=== PATIENT | female | born 1995 | race African-American/Black ===

== ENCOUNTER 2024-08-02 19:47 | Emergency (ER) | payer OTHER, SELFPAY ==
[2024-08-02 19:49] VITALS: BP 107/62; PULSE 73; RESP 18; TEMP 36.6; O2SAT 100
--- NOTE | 2024-08-03 03:02 | ED.GENADULT ---
HPI - General Adult General Chief complaint: Unspecified Stated complaint: body aches, fingers aching Time Seen by Provider: 08/03/24 03:03 History of Present Illness HPI narrative: 29-year-old otherwise healthy female presents to the emergency department with vague body aches, myalgias, subjective hot and cold sensations and intolerance to the cold. Denies any weight gain or weight loss, hair thinning, nail issues. No chest pain, shortness a breath, nausea, vomiting, headache, vision changes. She states her symptoms are much worse in the morning and subsided throughout the day. Hot showers make this better. Has tried Tylenol without any relief of her symptoms. Went to urgent care and was dismissed after a urine test but she has not received any kind of blood tests or further workup. Presently does not have a primary care provider. Related Data Allergies Allergy/AdvReac Type Severity Reaction Status Date / Time No Known Allergies Allergy Verified 08/03/24 03:51 Review of Systems Review of Systems: As reviewed above in HPI Exam Narrative: GENERAL: [Well-appearing, well-nourished, and in no acute distress.] HEAD: [Normocephalic, atraumatic.] EYES: [PERRLA and EOMI.] ENT: Nares clear, no rhinorrhea or epistaxis. Mucous membranes moist. NECK: Supple. CHEST: [Clear to auscultation. No respiratory distress.] HEART: [Regular rate and rhythm]. No murmur heard. [Normal peripheral pulses.] ABDOMEN: [Soft, nondistended], [nontender], [No rigidity or guarding] EXTREMITIES: Normal range of motion. [No edema.] SKIN: Warm, dry, no rash. NEURO: [No focal deficits]. Alert and oriented [x3.] PSYCH: [Normal mood and affect.] Course Vital Signs Vital signs: Vital Signs Temperature 36.6 C 08/02/24 19:49 Pulse Rate 73 08/02/24 19:49 Respiratory Rate 18 08/02/24 19:49 Blood Pressure 107/62 08/02/24 19:49 Pulse Oximetry 100 08/02/24 19:49 Oxygen Delivery Room Air 08/02/24 19:49 Temperature 36.6 C 08/02/24 19:49 Pulse Rate 73 08/02/24 19:49 Respiratory Rate 16 08/03/24 04:23 Blood Pressure 107/62 08/02/24 19:49 Pulse Oximetry 98 08/03/24 04:23 Oxygen Delivery Room Air 08/02/24 19:49 Medical Decision Making MDM Narrative Medical decision making narrative: 29-year-old otherwise healthy female presenting to the emergency department for vague complaints including diffuse myalgias especially in the major joints, cold intolerance, subjective myalgias. She states her symptoms are much worse in the morning and he is up throughout the day. Not responsive to Tylenol. Has not had a workup for this and does not have a primary care provider at this time. She has normal reassuring vital signs and a reassuring benign examination with good cardiovascular pulmonary assessment as well as no significant findings on her joint and musculoskeletal assessment. Differential diagnosis is broad at this time includes electrolyte disturbances, thyroid issues, arthritis, viral illness likely COVID. Workup was ordered including CBC, BMP, CRP, ESR, TSH, COVID fluid RSV swabs. Bedside test was obtained. Naprosyn was ordered for her symptoms. Workup revealed no leukocytosis or anemia. Chemistry panel within normal limits, creatinine at 0.6 and normal. Glucose normal at 99. Negative CRP, normal TSH, normal CPK. test negative. Viral swabs negative. At this time patient is stable for discharge home with regular primary care provider follow-up. Patient is not have a PCP at this time and 1 was arranged for her with discharge instructions to follow. All her questions were answered and return precautions were given. Vital Signs Vital Signs: Vital Signs Temperature 36.6 C 08/02/24 19:49 Pulse Rate 73 08/02/24 19:49 Respiratory Rate 18 08/02/24 19:49 Blood Pressure 107/62 08/02/24 19:49 Pulse Oximetry 100 08/02/24 19:49 Oxygen Delivery Room Air 08/02/24 19:49
[2024-08-03] MEDS: NAPROXEN 500 MG TABLET PO (03:52)
[2024-08-03 03:53] LABS: BEDSIDEPREGUCG Negative (Negative)
[2024-08-03 03:56] LABS: Basophils Percent Auto 1.4 % (0.2-1.2); Eosinophils Absolute Auto 0.1 K/mm3 (0-0.3); Eosinophils Percent Auto 4.2 % (0-4.4); Hematocrit 34.9 % (37.0-47.0); Hemoglobin 11.5 g/dL (12.0-15.0); Lymphocytes Absolute Auto 1.45 K/mm3 (0.9-3.2); Lymphocytes Percent Auto 51.1 % (18.3-44.2); Mean Corpuscular Hemoglobin 27.6 pg (26-34); Mean Corpuscular Volume 83.9 fl (80-100); Mean Platelet Volume 9.4 fl (7.4-10.4); Monocytes Absolute Auto 0.3 K/mm3 (0.1-0.6); Monocytes Percent Auto 9.9 % (2.6-8.5); Neutrophils Percent Auto 33.4 % (45.5-73.1); Platelet Count Result 220 k/mm3 (150-375); Red Blood Count 4.16 M/mm3 (4.2-5.4); Red Cell Distribution Width 12.7 % (11.5-14.5); White Blood Count 2.8 K/mm3 (4.5-10.0)
[2024-08-03 04:09] LABS: Anion Gap 10 mmol/L (4-12); Blood Urea Nitrogen 11 mg/dL (7-17); CRP < 0.5 mg/dL (<1.0); Calcium 9.3 mg/dL (8.4-10.2); Carbon Dioxide 29 mmol/L (22-30); Chloride 101 mmol/L (98-107); Creatine Kinase 58 U/L (30-135); Estimated CRCL calculation 100 ml/min; Estimated Glomerular Filt Rate > 60; Glucose 99 mg/dL (65-110); Potassium 3.4 mmol/L (3.4-5.0); Sodium 140 mmol/L (137-145)
[2024-08-03 04:23] VITALS: RESP 16; O2SAT 98
[2024-08-03 04:32] LABS: Erythrocyte Sedimentation Rate 15 mm/hr (0-20); Influenza A QL RT-PCR Negative (Negative); Influenza B QL RT-PCR Negative (Negative); SARS-CoV-2 RNA PCR Negative (Negative)
[2024-08-03 05:38] VITALS: BP 112/81; PULSE 69; RESP 17; TEMP 36.5; O2SAT 99
== END 2024-08-03 05:39 | disposition home or self-care (01) ==
PROVIDERS: Emergency Provider Student in an Organized Health Care Education/Training Program
DX: M79.10 Myalgia, unspecified site (principal); Z20.822 Contact with and (suspected) exposure to COVID-19
CPT/HCPCS: 36415; 80048; 81025; 82550; 84443; 85025; 85652; 86140; 87636; 99283; A9270

== ENCOUNTER 2025-03-09 08:16 | Outpatient (CLI) | payer OTHER, SELFPAY ==
--- NOTE | ~2025-03-09 | US_ITS ---
EXAMINATION: US thyroid DATE: 03/09/2025 08:50 INDICATION: Neck fullness TECHNIQUE: Multiple ultrasound images of the thyroid were obtained. COMPARISON: None. FINDINGS: The right thyroid lobe measures 4.8 x 1.3 x 1.5 cm. The left thyroid lobe measures 4.5 x 1.4 x 1.5 cm. The isthmus measures 0.3cm in anterior to posterior dimension. There is normal homogeneous echotexture throughout the thyroid gland. No discrete nodules identified. Normal vascular flow is present. IMPRESSION: Unremarkable sonographic evaluation of the thyroid gland, as detailed above. Reviewed, dictated and finalized at location A.
--- OUTSIDE RECORDS SUMMARY | 2025-03-09 08:25 | XMS_ITS | Encounter Summary ---
Author Organization [facility] Address [address] [place] [address] Care Team Providers Care Locomotive Operator Name Role Phone Gem Bhatia NP Primary Care Provider [phone] Kim John NP Unavailable [phone] Reason for Referral * Consultation (Routine) - Closed Specialty Diagnoses / Procedures Referred By Contac t Referred To Contact Cardiology Diagnoses Hypotension, unspecified hypotension type Fatigue, unspecified type Light-headedness Gem Bhatia NP [address] [facility] [address] [place] [address] Phone: tel: fax: Nikki Coleman NP [address] [place] [address] [address] [place] [address] Phone: tel: fax: Referral ID Status Reason Start Date Expiration Date V isits Requested Visits Authorized [id number] Closed Specialty Services Required 01/27/2025 02/26/2026 1 1 Question Answer Please select the performing region: HOSP [facility] ([facility]) [[id number]] Please select the performing department: [facility] [address] [[id number]] To provider: NIKKI COLEMAN [[id number]] # of visits: 1 [employer] Encounter Details Date Type Department Care Team (Late st Contact Info) Description 01/26/2025 Results Follow-Up [facility] [place] [address] [place] [address] [phone] Gem Bhatia NP [address] [facility] [address] [place], [place] [id number] Hypotension, unspecified hypotension type (Primary Dx); Fatigue, unspecified type; Light-headedness Social History Tobacco Use Types Packs/Day Years Used Date Smoking Tobacco: Never Cigarettes Smokeless Tobacco: Never PHQ-2 Answer Date Recorded PHQ-2 Total Score (If total score is 3 or more points, staff should administer the PHQ-9) 0 01/10/2025 Comments Unknown Sex and Gender Information Value Date Recorded Sex Assigned at Not on file Legal Sex Female 8:02 PM [employer] Gender Identity Female 08/07/2024 12:23 PM CDT Sexual Orientation Straight 08/07/2024 12 :23 PM CDT documented as of this encounter Plan of Treatment Scheduled Referrals Name Type Priority Associated Diagnoses Orde r Schedule Ambulatory referral to Cardiology Outpatient Referral Routine Hypotension, unspecified hypotension type Fatigue, unspecified type Light-headedness Expected: 01/28/2025 (Approximate), Expires: 01/27/2026 documented as of this encounter Visit Diagnoses Diagnosis Hypotension, unspecified hypotension type- Primary Fatigue, unspecified type Light-headedness Dizziness and giddiness documented in this encounter Care Teams Locomotive Operator Relationship Specialty Start Date End Date Gem Bhatia NP [address] [place] [address] [address] [place], [place] [id number] PCP - General Family Medicine 12/05/24 Kim John NP [address] [place] [address] [address] Nurse Practitioner Obstetrics and Gynecology 02/22/25 documented as of this encounter
--- OUTSIDE RECORDS SUMMARY | 2025-03-09 08:25 | XMS_ITS | Referral Summary ---
Author Organization [facility] Address [address] [place] [address] Care Team Providers Care Director Of Food And Beverage Services Name Role Phone Nathaniel Torres NP Primary Care Provider [phone] Kim John NP Unavailable [phone] Encounters Date Type Department Care Team Description 03/03/2025 11:45 AM CDT Office Visit [facility] at [address] [place] [address] Nikki Coleman NP Hypotension, unspecified hypotension type; Fatigue, unspecified type; Light-headedness 02/22/2025 10:00 AM CDT Office Visit [facility] Primary Care at [address] [address] Nathaniel Torres NP Annual physical exam (Primary Dx); Hypotension, unspecified hypotension type; Neck fullness; Voice hoarseness 01/26/2025 Results Follow-Up [facility] Primary Care at [address] [address] Nathaniel Torres NP Hypotension, unspecified hypotension type (Primary Dx); Fatigue, unspecified type; Light-headedness 01/26/2025 1:30 PM GRAIN MIXER Ancillary Procedure [facility] Cardiology at [address] [place] [address] Hypotension, unspecified hypotension type 01/12/2025 2:00 PM GRAIN MIXER Lab [address] [place] [address] Anemia, unspecified type (Primary Dx); Other decreased white blood cell (WBC) count 01/12/2025 2:30 PM GRAIN MIXER Office Visit [address] [place] [address] Jason Franz MD Anemia, unspecified type (Primary Dx); Other decreased white blood cell (WBC) count; Lyme disease 01/11/[address] [place] [address] Arminda Brown, CLT 01/10/2025 1:00 PM GRAIN MIXER Office Visit [facility] Primary Care at [address] [address] Nathaniel Torres NP Hypotension, unspecified hypotension type (Primary Dx); Complaints of total body pain; Fatigue, unspecified type 12/29/2024 2:00 PM GRAIN MIXER Lab [address] [place] [address] Anemia, unspecified type; Other decreased white blood cell (WBC) count 12/29/2024 1:30 PM GRAIN MIXER Office Visit [address] [place] [address] Jason Franz MD Anemia, unspecified type; Other decreased white blood cell (WBC) count; Complaints of total body pain; Fatigue, unspecified type; Abnormally prolonged clotting time 12/28/[address] [place] [address] Arminda Brown, CLT 12/09/2024 Telephone [facility] Oncology [address] [place] [address] [address] [place] [address] Darlene Mccormick, CLT from Last 3 Months Allergies No known active allergies Medications wlrgrfuh-cuat-os n-folic acid 18-0.4 mg tablet Take by mouth Active [id number] acid 29 mg iron- 1 mg tablet,chewable Take by mouth Active biotin 5 mg capsule 1 capsule (1 tablet total) Active doxycycline (VIBRAMYCIN) 100 mg capsuleIndicatio ns:Lyme disease Take 1 tablet/capsule (100 mg total) by mouth 2 (two) times a day 60 tablet/capsu le 5 Active Additional Information Patient not taking.Reported on 03/03/2025 famotidine (PEPCID) 40 mg tablet Take 1 tablet (40 mg total) by mouth daily 30 tablet 1 5 Active midodrine (PROAMATINE) 2.5 mg tabletIndication s:Symptomatic Orthostatic Hypotension Take 1 tablet (2.5 mg total) by mouth 3 (three) times a day 90 tablet 5 04/02/20 25 Active Active Problems Problem Noted Date Diagnosed Date Sickle cell trait 01/12/2025 Hypotension 01/10/2025 Assessment & Plan (02/22/2025 10:36 AM CDT): Continuing despite hydration. Discussed compression socks. With the arthralgias and fatigue need to consider autoimmune origin, workup negative thus far though. Possibly POTS? Pt has upcoming Cardiology appt, will get their take on pt's hypotension/sx. Bacterial vaginosis 12/05/2024 Chlamydial infection 12/05/2024 Vaginal discharge 12/05/2024 Immunizations Immunization Administration Dates Next Due DTP 05/04/1997,04/28/1994,1993 ,1993 HPV, Quadrivalent 11/21/2009 HPV9 03/15/2019,09/29/2018 Hep A, Pediatric 06/15/2003 Hep B, Adolescent or Pediatric 04/28/1994,1992,1993 HiB 08/29/1994,04/28/1994,1993 ,1993 MMR 08/29/2002,08/29/1994 Meningococcal MCV4P (Menactra) 11/21/2009 OPV 05/04/1997,04/28/1994,1993 ,1993 Tdap 04/26/2012 Varicella 11/21/2009,06/15/2003 Social History Tobacco Use Types Packs/Day Years Used Date Smoking Tobacco: Never Cigarettes Smokeless Tobacco: Never Tobacco Cessation:Counseling Given: Not Answered PHQ-2 Answer Date Recorded PHQ-2 Total Score (If total score is 3 or more points, staff should administer the PHQ-9) 0 02/22/2025 Comments Unknown Sex and Gender Information Value Date Recorded Sex Assigned at Not on file Legal Sex Female 8:02 PM GRAIN MIXER Gender Identity Female 08/07/2024 12:23 PM CDT Sexual Orientation Straight 08/07/2024 12 :23 PM CDT Last Filed Vital Signs Vital Sign Reading Time Taken Comments Blood Pressure 107/71 03/03/2025 12:23 PM CDT Ad ult Cuff Pulse 71 03/03/2025 12:23 PM CDT Temperature 36.9 C (98.4 F) 02/22/2025 9:51 AM CDT Respiratory Rate 16 03/03/2025 12:23 PM CDT Oxygen Saturation 98% 03/03/2025 12:23 PM CDT Inhaled Oxygen Concentration - - Weight 56.2 kg (124 lb) 03/03/2025 12:23 PM CDT Height 165.1 cm (5' 5 ) 03/03/2025 12:23 PM CDT Body Mass Index 20.63 03/03/2025 12:23 PM CDT Plan of Treatment Not on file Procedures Procedure Name Priority Date/Time Associated Diagnosis Comments TRANSTHORACIC ECHO (TTE) COMPLETE W DOPPLER/CF WO CONTRAST Routine 01/26/2025 2:41 PM GRAIN MIXER Hypotension, unspecified hypotension type DIFFERENTIAL AUTO Routine 01/12/2025 1:5 0 PM GRAIN MIXER Anemia, unspecified type CBC WITH AUTO DIFFERENTIAL Routine 01/12/2025 1:50 PM GRAIN MIXER Anemia, unspecified type ECG 12-LEAD Routine 01/10/2025 3:01 PM GRAIN MIXER Hypotension, unspecified hypotension type HEMOGLOBIN CONFIRMATION, ACID ELECTROPHORESIS Routine 12/29/2024 2:00 PM GRAIN MIXER Anemia, unspecified type Other decreased white blood cell (WBC) count SLIDE REVIEW - PATHOLOGIST Routine 12/29/2024 2:00 PM GRAIN MIXER Anemia, unspecified type Other decreased white blood cell (WBC) count DIFFERENTIAL AUTO Routine 12/29/2024 2:0 0 PM GRAIN MIXER Anemia, unspecified type Other decreased white blood cell (WBC) count RETICULOCYTES Routine 12/29/2024 2:00 PM GRAIN MIXER Anemia, unspecified type Other decreased white blood cell (WBC) count HAPTOGLOBIN Routine 12/29/2024 2:00 PM GRAIN MIXER Anemia, unspecified type Other decreased white blood cell (WBC) count LACTATE DEHYDROGENASE Routine 12/29/2024 2:00 PM GRAIN MIXER Anemia, unspecified type Other decreased white blood cell (WBC) count T4, FREE Routine 12/29/2024 2:00 PM GRAIN MIXER Anemia, unspecified type Other decreased white blood cell (WBC) count TSH Routine 12/29/2024 2:00 PM GRAIN MIXER Anemia, unspecified type Other decreased white blood cell (WBC) count FOLATE Routine 12/29/2024 2:00 PM GRAIN MIXER Anemia, unspecified type Other decreased white blood cell (WBC) count CBC WITH AUTO DIFFERENTIAL Routine 12/29/2024 2:00 PM GRAIN MIXER Anemia, unspecified type Other decreased white blood cell (WBC) count COPPER, SERUM Routine 12/29/2024 2:00 PM GRAIN MIXER Anemia, unspecified type Other decreased white blood cell (WBC) count HEMOGLOBIN ANALYSIS BY ELECTROPHORESIS Routine 12/29/2024 2:00 PM GRAIN MIXER Anemia, unspecified type Other decreased white blood cell (WBC) count SURGICAL PATHOLOGY Routine 12/29/2024 8: 30 AM GRAIN MIXER from Last 3 Months Results * TRANSTHORACIC ECHO (TTE) COMPLETE W DOPPLER/CF WO CONTRAST (01/26/2025 2:41 PM GRAIN MIXER) LV EF 60 % CONS SCIMAGE Anatomical Region Laterality Modality Ultrasound 01/26/2025 1:26 PM GRAIN MIXER Narrative 01/26/2025 4:[address] [facility] Cardiology [address], [address], [place] [address] P:[phone] P:[phone] Echocardiographic Report Patient Name: CORAL VANESSA D : 1995 Study Date: 01/26/2025 1:26:26 PM Gender: F Tech: Location: [facility] Ref Provider: NATHANIEL TORRES Height(Cm): 170 BSA: 1.64 Weight(Kg): 56.7 Heart Rate: 71 BP: 108 / 60 Quality: Good Order Provider: NATHANIEL TORRES PROCEDURES: Echocardiographic Report: Transthoracic echocardiogram with complete 2D, M-Mode, and color Doppler examination. With Strain Analysis. INDICATIONS: I95.9 Hypotension, unspecified. MEASUREMENTS: 2D/MM Value Range Doppler Value Range EF Mod BP 66 % [ 54 - 74 ] ANGELY Vmax 2.52 cm2 [ 2.00 - 4.00 ] EF Teich MM 60 % [ 54 - 74 ] AV Mean PG 4 mmHg Estimated EF 60 % AV Peak Aldair 1.33 m/s [ 1.00 - 1.70 ] LVIDd 2D 4.41 cm [ 3.80 - 5.20 ] AV Peak PG 7 mmHg LVIDd MM 4.87 cm [ 3.80 - 5.20 ] AV VTI 27.11 cm LVIDs 2D 2.91 cm [ 2.20 - 3.50 ] LVOT Diam 1.96 cm [ 1.70 - 2.10 ] LVIDs MM 3.33 cm [ 2.20 - 3.50 ] LVOT Peak Aldair 1.07 m/s [ 0.70 - 1.10 ] LVPWd 2D 0.70 cm [ 0.60 - 0.90 ] LVOT VTI 20.86 cm LVPWd MM 0.68 cm [ 0.60 - 0.90 ] MV E Peak Aldair 0.91 m/s [ 0.60 - 1.30 ] IVSd 2D 0.77 cm [ 0.60 - 0.90 ] MV A Peak Aldair 0.48 m/s [ 1.00 - 1.20 ] IVSd MM 0.80 cm [ 0.60 - 0.90 ] MV Decel Time 209 msec [ 104 - 258 ] LA Dimension MM 2.53 cm [ 2.70 - 3.80 ] PV Peak Aldair 0.89 m/s [ 0.40 - 0.80 ] AoR Diam MM 3.19 cm [ 2.70 - 3.70 ] TR Peak Aldair 2.29 m/s [ 1.00 - 2.80 ] LA Volume Index 27 cc/m2 [ 16 - 34 ] TR Peak PG 21 mmHg RVSP 29.00 mmHg [ 10.00 - 36.00 ] Lateral E` 0.21 m/s [ 0.10 - 0.15 ] E/E` 4 2D/MM Value Range Doppler Value Range - FINDINGS: Interpretation Site: Exam was interpreted at [facility]. Left Ventricle: Normal left ventricular size. Normal global left ventricular systolic function. Normal left ventricular diastolic function. Ejection fraction is measured at 66 %. Ejection Fraction is visually estimated to be 60 %. Global Longitudinal Strain is -19 %. Right Ventricle: Normal right ventricular size. Left Atrium: The left atrium is normal in size. Right Atrium: The right atrium is normal in size. Atrial Septum: Normal atrial septum. Mitral Valve: Normal appearance of the mitral valve. Trivial regurgitation of the mitral valve. Aortic Valve: Normal appearance of the aortic valve. Tricuspid Valve: Normal appearance of the tricuspid valve. Estimated peak RVSP is 29 mmHg. Mild tricuspid regurgitation. Pulmonic Valve: Normal appearance of the pulmonic valve. Pericardium: Normal pericardium with no significant pericardial effusion. Aorta: Normal aortic root. IVC: Normal size and normal respiratory collapse consistent with normal right atrial pressure (<5 mmHg). Pulmonary Artery: Normal pulmonary artery size. CONCLUSIONS: Otherwise normal study. Very small amount of mitral and tricuspid valve insufficiency. Anatomically normal-appearing valve. Electronically Signed By: Lawson Bowling MD, [facility] 01/26/2025 4:21:08 PM GRAIN MIXER Procedure Note Lawson Bowling MD - 01/26/2025 [facility] Cardiology [address], [address], [place] [address] P:[phone] P:[phone] Echocardiographic Report Patient Name: CORAL VANESSA D : 1995 Study Date: 01/26/2025 1:26:26 PM Gender: F Tech: Location: [facility] Ref Provider: NATHANIEL TORRES Height(Cm): 170 BSA: 1.64 Weight(Kg): 56.7 Heart Rate: 71 BP: 108 / 60 Quality: Good Order Provider: NATHANIEL TORRES PROCEDURES: Echocardiographic Report: Transthoracic echocardiogram with complete 2D, M-Mode, and color Dopplerexamination. With Strain Analysis. INDICATIONS: I95.9 Hypotension, unspecified. MEASUREMENTS: 2D/MM Value Range Doppler ValueRange EF Mod BP 66 % [ 54 - 74 ] ANGELY Vmax 2.52cm2 [ 2.00 - 4.00 ] EF Teich MM 60 % [ 54 - 74 ] AV Mean PG 4mmHg Estimated EF 60 % AV Peak Aldair 1.33m/s [ 1.00 - 1.70 ] LVIDd 2D 4.41 cm [ 3.80 - 5.20 ] AV Peak PG 7mmHg LVIDd MM 4.87 cm [ 3.80 - 5.20 ] AV VTI 27.11cm LVIDs 2D 2.91 cm [ 2.20 - 3.50 ] LVOT Diam 1.96 cm[ 1.70 - 2.10 ] LVIDs MM 3.33 cm [ 2.20 - 3.50 ] LVOT Peak Aldair 1.07m/s [ 0.70 - 1.10 ] LVPWd 2D 0.70 cm [ 0.60 - 0.90 ] LVOT VTI 20.86cm LVPWd MM 0.68 cm [ 0.60 - 0.90 ] MV E Peak Aldair 0.91m/s [ 0.60 - 1.30 ] IVSd 2D 0.77 cm [ 0.60 - 0.90 ] MV A Peak Aldair 0.48m/s [ 1.00 - 1.20 ] IVSd MM 0.80 cm [ 0.60 - 0.90 ] MV Decel Time 209msec [ 104 - 258 ] LA Dimension MM 2.53 cm [ 2.70 - 3.80 ] PV Peak Aldair 0.89m/s [ 0.40 - 0.80 ] AoR Diam MM 3.19 cm [ 2.70 - 3.70 ] TR Peak Aldair 2.29m/s [ 1.00 - 2.80 ] LA Volume Index 27 cc/m2 [ 16 - 34 ] TR Peak PG 21mmHg RVSP 29.00 mmHg [ 10.00 - 36.00 ] Lateral E` 0.21 m/s [ 0.10 - 0.15 ] E/E` 4 2D/MM Value Range Doppler ValueRange - FINDINGS: Interpretation Site: Exam was interpreted at [facility]. Left Ventricle: Normal left ventricular size. Normal global left ventricular systolicfunction. Normal left ventricular diastolic function. Ejection fraction is measured at 66%. Ejection Fraction is visually estimated to be 60 %. Global Longitudinal Strain is-19 %. Right Ventricle: Normal right ventricular size. Left Atrium: The left atrium is normal in size. Right Atrium: The right atrium is normal in size. Atrial Septum: Normal atrial septum. Mitral Valve: Normal appearance of the mitral valve. Trivial regurgitation of the mitralvalve. Aortic Valve: Normal appearance of the aortic valve. Tricuspid Valve: Normal appearance of the tricuspid valve. Estimated peak RVSP is 29 mmHg.Mild tricuspid regurgitation. Pulmonic Valve: Normal appearance of the pulmonic valve. Pericardium: Normal pericardium with no significant pericardial effusion. Aorta: Normal aortic root. IVC: Normal size and normal respiratory collapse consistent with normal rightatrial pressure (<5 mmHg). Pulmonary Artery: Normal pulmonary artery size. CONCLUSIONS: Otherwise normal study. Very small amount of mitral and tricuspid valve insufficiency. Anatomically normal-appearing valve. Electronically Signed By: Lawson Bowling MD, [facility] 01/26/2025 4:21:08 PM GRAIN MIXER us Nathaniel Torres NP CV ECHO PROCEDURES Final Result * Differential, auto (01/12/2025 1:50 PM GRAIN MIXER) Neutrophil abs 2.1 1.5 - 6.5 K/cumm Comment:Testing performed by : [place], [address] Imm gran abs 0.0 0.0 - 0.1 K/cumm [facility] ([place]) Comment:Testing performed by : [place], [address] Lymphocyte abs 1.2 0.8 - 3.3 K/cumm [facility] ([place]) Comment:Testing performed by : [place], [address] Monocyte abs 0.2 0.2 - 0.8 K/cumm [facility] ([place]) Comment:Testing performed by : [place], [address] Eosinophil abs 0.1 0.0 - 0.5 K/cumm [facility] ([place]) Comment:Testing performed by : [place], [address] Basophil abs 0.0 0.0 - 0.1 K/cumm [facility] ([place]) Comment:Testing performed by : [place], [address] Neutrophil pct 58.4 % [facility] ([place]) Comment: Interpretive Data Percent cell count reference ranges are not reported, since discordance with absolute values may lead to misinterpretation of CBC data. Current Interpretive Data was last revised on 2018. Testing performed by: [place], [address] Imm gran pct 0.0 % [facility] Comment: Interpretive Data Percent cell count reference ranges are not reported, since discordance with absolute values may lead to misinterpretation of CBC data. Current Interpretive Data was last revised on 2018. Testing performed by: [place], [address] Lymphocyte pct 32.3 % [facility] ([place]) Comment: Interpretive Data Percent cell count reference ranges are not reported, since discordance with absolute values may lead to misinterpretation of CBC data. Current Interpretive Data was last revised on 2018. Testing performed by: [facility], [place], [address] Monocyte pct 6.3 % [facility]) Comment: Interpretive Data Percent cell count reference ranges are not reported, since discordance with absolute values may lead to misinterpretation of CBC data. Current Interpretive Data was last revised on 2018. Testing performed by: [facility], [place], [address] Eosinophil pct 2.2 % [facility] ([place] Comment: Interpretive Data Percent cell count reference ranges are not reported, since discordance with absolute values may lead to misinterpretation of CBC data. Current Interpretive Data was last revised on 2018. Testing performed by: [place], [address] Basophil pct 0.8 % [facility] ([place]) Comment: Interpretive Data Percent cell count reference ranges are not reported, since discordance with absolute values may lead to misinterpretation of CBC data. Current Interpretive Data was last revised on 2018. Testing performed by: [facility], [place], [address] Blood 01/12/2025 1:50 PM GRAIN MIXER 01/12/2025 2:23 PM GRAIN MIXER us Jason Franz MD LAB BLOOD ORDERABLES Celsa montemayor Result [facility] ([place]) [address] [place] [address] Department [place] [address] * (ABNORMAL) CBC with auto differential (01/12/2025 1:50 PM GRAIN MIXER) [facility] Signature WBC 3.7(L) 3.8 - 9.9 K/cumm Comment:Testing performed by : [place], [address] Hgb 11.9 11.9 - 15.5 g/dL [facility] ([place]) Comment:Testing performed by : [place], [address] Hct 36.5 35.6 - 45.5 % [facility] ([place]) Comment:Testing performed by : [place], [address] Plt 223 150 - 400 K/cumm [facility] ([place]) Comment:Testing performed by : [place], [address] MPV 10.0 9.1 - 12.3 fL [facility] ([place]) Comment:Testing performed by : [place], [address] RBC 4.37 3.90 - 5.20 M/cumm [facility] ([place]) Comment:Testing performed by : [place], [address] MCV 83.5 81.3 - 96.4 fL [facility] ([place]) Comment:Testing performed by : [place], [address] MCH 27.2 27.1 - 33.3 pg [facility] ([place]) Comment:Testing performed by : [place], [address] MCHC 32.6 32.3 - 35.7 g/dL [facility] ([place]) Comment:Testing performed by : [place], [address] RDW CV 12.2 11.1 - 14.9 % [facility] ([place]) Comment:Testing performed by : [place], [address] RDW SD 37.3 35.7 - 48.1 fL [facility] ([place]) Comment:Testing performed by : [facility], [place], [address] NRBC abs 0.00 0.00 - 0.01 K/cumm [facility] ([place]) Comment:Testing performed by : [place], [address] Blood 01/12/2025 1:50 PM GRAIN MIXER 01/12/2025 2:23 PM GRAIN MIXER us Jason Franz MD LAB BLOOD ORDERABLES Celsa l Result [facility] ([place]) [address] [place] [address] Department [place] [address] * ECG 12-LEAD (01/10/2025 3:01 PM GRAIN MIXER) Narrative Nathaniel Torres NP - 01/10/2025 3:01 PM GRAIN MIXER Nathaniel Torres NP 01/10/2025 3:02 PM ECG 12 lead Date/Time: 01/10/2025 3:01 PM Performed by: Nathaniel Torres NP Authorized by: Nathaniel Torres NP Rhythm: sinus rhythm Ectopy: infrequent PVCs Rate: normal QRS axis: normal Conduction: incomplete RBBB ST Segments: ST segments normal T Waves: T waves normal Nathaniel Torres NP ECG ORDERABLES Final Result * Slide review - pathologist (12/29/2024 2:00 PM GRAIN MIXER) Slide review by Dr. Lewis Comment: Interpretive Data See Clinical Pathology Report under Media section in [employer]. Current Interpretive Data was last revised on 2018. Testing performed by: [facility], [place], [address] Blood 12/29/2024 2:00 PM GRAIN MIXER 12/29/2024 2:24 PM GRAIN MIXER us Jason Franz MD LAB BLOOD ORDERABLES Celsa l Result Performing Organization Address City/[facility]/ZIP Co de Phone Number [facility] ([place]) [address] [facility] Department [place] [address] * Differential, auto (12/29/2024 2:00 PM GRAIN MIXER) Neutrophil abs 1.8 1.5 - 6.5 K/cumm Comment:Testing performed by : [facility] [address], Medical Office [facility] [address], [place] [address] Imm gran abs 0.0 0.0 - 0.1 K/cumm [facility] ([place]) Comment:Testing performed by : [facility] [address], Medical Office [facility] [address], [place] [address] Lymphocyte abs 1.4 0.8 - 3.3 K/cumm [facility] ([place]) Comment:Testing performed by : [facility] [address], Medical Office [facility] [address], [place] [address] Monocyte abs 0.2 0.2 - 0.8 K/cumm [facility] ([place]) Comment:Testing performed by : [facility] [address], Medical Office [facility] [address] [facility] [address], [place] [address] Eosinophil abs 0.1 0.0 - 0.5 K/cumm [facility] ([place]) Comment:Testing performed by : [facility] [address], Medical Office [facility] [address], [place] [address] Basophil abs 0.0 0.0 - 0.1 K/cumm [facility] ([place]) Comment:Testing performed by : [facility] [address], Medical Office [facility] [address], [place] [address] Neutrophil pct 51.4 % [facility] ([place]) Comment: Interpretive Data Percent cell count reference ranges are not reported, since discordance with absolute values may lead to misinterpretation of CBC data. Current Interpretive Data was last revised on 2022. Testing performed by: [facility] [address], Medical Office [facility] [address], [place] [address] Imm gran pct 0.0 % [facility] ([place]) Comment: Interpretive Data Percent cell count reference ranges are not reported, since discordance with absolute values may lead to misinterpretation of CBC data. Current Interpretive Data was last revised on 2022. Testing performed by: [facility] [address], Medical Office [address], [place] [address] Lymphocyte pct 38.6 % [facility] ([place]) Comment: Interpretive Data Percent cell count reference ranges are not reported, since discordance with absolute values may lead to misinterpretation of CBC data. Current Interpretive Data was last revised on 2022. Testing performed by: [facility] [address], Medical Office [facility] [address], [place] [address] Monocyte pct 6.3 % [facility] ([place]) Comment: Interpretive Data Percent cell count reference ranges are not reported, since discordance with absolute values may lead to misinterpretation of CBC data. Current Interpretive Data was last revised on 2022. Testing performed by: [facility] [address], Medical Office [facility] [address], [place] [address] Eosinophil pct 2.6 % [facility] ([place]) Comment: Interpretive Data Percent cell count reference ranges are not reported, since discordance with absolute values may lead to misinterpretation of CBC data. Current Interpretive Data was last revised on 2022. Testing performed by: [facility] [address], Medical Office [facility] [address], [place] [address] Basophil pct 1.1 % [facility] ([place]) Comment: Interpretive Data Percent cell count reference ranges are not reported, since discordance with absolute values may lead to misinterpretation of CBC data. Current Interpretive Data was last revised on 2022. Testing performed by: [facility] [address], Medical Office [facility] [address], [place] [address] Blood 12/29/2024 2:00 PM GRAIN MIXER 12/29/2024 2:09 PM GRAIN MIXER us Jason Franz MD LAB BLOOD ORDERABLES Celsa montemayor Result [facility] ([place]) [address] [facility] [place] [address] * Hemoglobin confirmation, acid electrophoresis (12/29/2024 2:00 PM GRAIN MIXER) Hemoglobin Confirmation, Acid Electrophoresis Presence of Hemoglobin S confirmed by Acid Gel Electrophores is. Comment:Testing performed by : [facility], [address] [facility], [place]., [address] Blood 12/29/2024 2:00 PM GRAIN MIXER 12/29/2024 4:57 PM GRAIN MIXER us Jason Franz MD LAB BLOOD ORDERABLES Celsa albina Result [facility] ([place]) 1 [facility] Department of [place] [address] * (ABNORMAL) CBC with auto differential (12/29/2024 2:00 PM GRAIN MIXER) WBC 3.5(L) 3.8 - 9.9 K/cumm Comment:Testing performed by : [facility] [address], Medical Office [address], [place] [address] Hgb 12.1 11.9 - 15.5 g/dL [facility] ([place]) Comment:Testing performed by : [facility] [address], Medical Office [address], [place] [address] Hct 34.6(L) 35.6 - 45.5 % [facility] ([place]) Comment:Testing performed by : [facility] [address], Medical Office [address], [place] [address] Plt 242 150 - 400 K/cumm [facility] ([place]) Comment:Testing performed by : [facility] [address], Medical Office [address], [place] [address] MPV 9.3 9.1 - 12.3 fL [facility] ([place]) Comment:Testing performed by : [facility] [address], Medical Office [address], [place] [address] RBC 4.44 3.90 - 5.20 M/cumm [facility] ([place]) Comment:Testing performed by : [facility] [address], Medical Office [address], [place] [address] MCV 77.9(L) 81.3 - 96.4 fL [facility] ([place]) Comment:Testing performed by : [facility] [address], Medical Office [facility] [address] [facility] [address], [place] [address] MCH 27.3 27.1 - 33.3 pg [facility] ([place]) Comment:Testing performed by : [facility] [address], Medical Office [facility] [address], [place] [address] MCHC 35.0 32.3 - 35.7 g/dL [facility] ([place]) Comment:Testing performed by : [facility] [address], Medical Office [facility] B [facility] [address], [place] [address] RDW CV 12.3 11.1 - 14.9 % [facility] ([place]) Comment:Testing performed by : [facility] [address], Medical Office [facility] [address] [facility] [address], [place] [address] RDW SD 35.3(L) 35.7 - 48.1 fL [facility] ([place]) Comment:Testing performed by : [facility] [address], Medical Office [facility] [address], [place] [address] NRBC abs Not Measured 0.00 - 0.01 K/cumm [facility] ([place]) Comment:Testing performed by : [facility] [address], Medical Office [facility] [address], [place] [address] Blood 12/29/2024 2:00 PM GRAIN MIXER 12/29/2024 2:09 PM GRAIN MIXER us Jason Franz MD LAB BLOOD ORDERABLES Celsa l Result [facility] ([place]) 1 [facility] Department [place] [address] * (ABNORMAL) Hemoglobin analysis by electrophoresis (12/29/2024 2:00 PM GRAIN MIXER) RBC 4.44 3.90 - 5.20 M/cumm Comment:Testing performed by : [facility], [address] [facility], [place]., [address] Hgb 12.1 11.9 - 15.5 g/dL [facility] ([place]) Comment:Testing performed by : [facility], [address] [place]., [address] MCV 83.6 81.3 - 96.4 fL [facility] ([place]) Comment:Testing performed by : [facility], [address] [facility], [address] Rdw 12.5 11.1 - 14.9 % [facility] ([place]) Comment:Testing performed by : 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 [facility] ([place]) Comment:Testing performed by : [facility], [address] [facility], [address] Hgb A 59.7(L) 96.0 - 98.5 % [facility] ([place]) Comment:Testing performed by : [facility], [address] [facility], [address] Hgb A2 3.5(H) 1.5 - 3.2 % [facility] ([place]) Comment:Testing performed by : [facility], [address] [place]., [address] Hgb F 1.3(H) 0.0 - 0.9 % [facility] ([place]) Comment:Testing performed by : [facility], [address] [facility], [address] Hgb S 35.5(H) 0.0 - 0.0 % [facility] ([place]) Comment:Testing performed by : [facility], [address] [facility], [address] Blood 12/29/2024 2:00 PM GRAIN MIXER 12/29/2024 4:46 PM GRAIN MIXER us Jason Franz MD LAB BLOOD ORDERABLES Celsa l Result [facility] ([place]) 1 [facility] [employer] [place] [place] [address] * (ABNORMAL) Copper, serum (12/29/2024 2:00 PM GRAIN MIXER) Copper 74(L) 77 - 206 mcg/dL [place] ref Lab Comment: ADDITIONAL INFORMATION This test was developed and its performance characteristics determined by [facility] in a manner consistent with CLIA requirements. This test has not been cleared or approved by the U.S. Food and Drug Administration. Test Performed by: [facility] [address] [place] [address] Director Of Pharmacy: Kiki Nascimento Ph.D.; CLIA# [id number] Testing performed by: [place], [address] Blood 12/29/2024 2:00 PM GRAIN MIXER 12/29/2024 2:24 PM GRAIN MIXER Jason Franz MD LAB BLOOD ORDERABLES Celsa l Result [facility] ([place]) 1 [facility] Department [place] [address] [place] ref Lab * Reticulocyte Count (12/29/2024 2:00 PM GRAIN MIXER) [facility] Retics, absolute 0.045 0.020 - 0.087 M/cumm Comment:Testing performed by : [place], [address] Retics 1.0 0.4 - 2.9 % [facility] ([place]) Comment:Testing performed by : [place], [address] Reticulocyte Hgb 31.2 30.5 - 38.0 pg [facility] ([place]) Comment:Testing performed by : [place], [address] Blood 12/29/2024 2:00 PM GRAIN MIXER 12/29/2024 2:38 PM GRAIN MIXER us Jason Franz MD LAB BLOOD ORDERABLES Celsa l Result [facility] ([place]) [address] [place] [address] [place] [place] [address] * TSH (12/29/2024 2:00 PM GRAIN MIXER) Thyroid Stimulating Hormone 2.14 0.30 - 4.20 mcIUnit/mL Comment:Testing performed by : [place], [address] Blood 12/29/2024 2:00 PM GRAIN MIXER 12/29/2024 2:24 PM GRAIN MIXER us Jason Franz MD LAB BLOOD ORDERABLES Celsa l Result Performing Organization Address City/[facility]/ZIP Co de Phone Number [facility] ([place]) [address] [place] [address] [place] [place] [address] * T4, free (12/29/2024 2:00 PM GRAIN MIXER) Free T4 1.14 0.90 - 1.70 ng/dL Comment:Testing performed by : [place], [address] Blood 12/29/2024 2:00 PM GRAIN MIXER 12/29/2024 2:24 PM GRAIN MIXER us Jason Franz MD LAB BLOOD ORDERABLES Celsa l Result [facility] ([place]) [address] [place] [address] Department [place] [employer] [place] [address] * Lactate dehydrogenase (LD) (12/29/2024 2:00 PM GRAIN MIXER) Lactate dehydrogenase (LDH) 133 100 - 250 Units/L Comment:Testing performed by : [place], [address] Blood 12/29/2024 2:00 PM GRAIN MIXER 12/29/2024 2:24 PM GRAIN MIXER us Jason Franz MD LAB BLOOD ORDERABLES Celsa l Result [facility] ([place]) 1 [facility] [place] [place] [address] * Haptoglobin (12/29/2024 2:00 PM GRAIN MIXER) Haptoglobin 105 30 - 200 mg/dL Comment:Testing performed by : [facility], [address] [place] [address]., [address] Blood 12/29/2024 2:00 PM GRAIN MIXER 12/30/2024 11:15 AM GRAIN MIXER Jason Franz MD LAB BLOOD ORDERABLES Celsa l Result Performing Organization Address [facility] Co de Phone Number [facility] ([place]) [address] [place] [address] * Folate (12/29/2024 2:00 PM GRAIN MIXER) Folic acid 19.4 >=5.0 ng/mL Comment: Slightly Hemolyzed Specimen. Results may be affected. Testing performed by: [facility], One [facility], [place], [address] Blood 12/29/2024 2:00 PM GRAIN MIXER 12/29/2024 2:24 PM GRAIN MIXER Jason Franz MD LAB BLOOD ORDERABLES Celsa l Result Performing Organization Address City/[facility] Co de Phone Number [facility] ([place]) 1 [facility] Department [place] [place] [address] * Surgical pathology (12/29/2024 8:30 AM GRAIN MIXER) Miscellaneous 12/29/2024 8:3 0 AM GRAIN MIXER 12/30/2024 8:30 AM GRAIN MIXER Narrative 12/30/2024 9:35 AM GRAIN MIXER EPIC results best viewed via link to PDF [facility] Department of Pathology [address] [place] [id number] Final Report Note to Patients: This report may contain a detailed description of human tissue sent by a health care provider to the laboratory for pathologic evaluation. The content of this report is essential for diagnosis and may provide important critical findings. This information may be unfamiliar to patients to review without a medical professional present. It is advised that the patient review this report in the presence of a health care provider who can answer questions and explain the details. Patient Name: CORAL VANESSA Address: [address] [place] [address] Gender: F : 1995 (Age: 29) Service: Location: N : [id number] [facility] #: [id number] Patient Type: [facility] MED ONC SERIES Taken: 12/29/2024 Received: 12/30/2024 Accessioned: 12/30/2024 Physician(s): Jason Franz MD Specimen(s) Received A: Blood Peripheral Blood Smear ReviewReported:12/30/2024 Microscopic review of the peripheral blood smear shows the red blood cells to be significant for a borderline microcytic anemia. No significant schistocyte population is seen. No nucleated red blood cells are identified. The white blood cells are significant for an overall mild leukopenia. The neutrophils show appropriate nuclear segmentation and cytoplasmic granulation. No significant left shift is seen. No blasts are identified. Scattered lymphocytes are present and are small and mature with no definitively atypical forms seen. Scattered monocytes, eosinophils, and basophils are seen which are normal in number and morphology. The platelets are overall normal in number and morphology. The platelets appear to be well granulated and show a normal size distribution. Neutrophils 51, Lymphocytes 39, Monocytes 6, Eosinophils 3, Basophils 1 Interpretation: Peripheral blood smear review: Borderline microcytic anemia. Mild overall leukopenia. Lawson Lewis M.D.Report Electronically Reviewed and Signed Out By Lawson Lewis M.D. 12/30/2024 09:32:49 The performance characteristics of some immunohistochemical stains, fluorescence in-situ hybridization tests and immunophenotyping by flow cytometry cited in this report (if any) were determined by the Surgical Pathology Department at [facility] as part of an ongoing quality facilitator program and in compliance with federally mandated regulations drawn from the Clinical Laboratory Improvement Act of 1988 (CLIA '88). Some of these tests rely on the use of analyte specific reagents and are subject to specific labeling requirements by the US Food and Drug Administration. Such diagnostic tests may only be performed in a facility that is certified by the Department of Health and Human Services as a high complexity laboratory under CLIA '88. The FDA has determined that such clearance or approval is not necessary. This test is used for clinical purposes. It should not be regarded as investigational or for research. Nevertheless, federal rules concerning the medical use of analyte specific reagents require that the following disclaimer be attached to the report: This test was developed and its performance characteristics determined by the Surgical Pathology Department [facility]. It has not been cleared or approved by the U. S. Food and Drug Administration. REPORT IMAGES AND SCANNED DOCUMENTS, IF INCLUDED, ONLY VIEWABLE IN PDF VERSION OF REPORTe o Jason Franz MD LAB PATHOLOGY ORDERABLES Final Result from Last [address] [facility] Care Teams Director Of Food And Beverage Services Relationship Specialty Start Date End Date Nathaniel Torres NP [address] [place] [address] PCP - General Family Medicine 12/05/24 Kim John NP [address] [place] [address] [address] [place] [address] Nurse Practitioner Obstetrics and Gynecology 02/22/25
--- OUTSIDE RECORDS SUMMARY | 2025-03-09 08:26 | XMS_ITS | Clinical Summary ---
Author Organization [facility] at the [facility] Address [address] [place] [address] Care Team Providers Care [facility]ality House Supervisor Name Role Phone Nathaniel Torres NP Primary Care Provider [phone] Kim John NP Unavailable Allergies No known active allergies Medications drbeqefi-jfus-bl n-folic acid 18-0.4 mg tablet Take by mouth Active zz331-[id number]-llgxc acid 29 mg iron- 1 mg tablet,chewable [...] 12/05/2024 Chlamydial infection 12/05/2024 Vaginal discharge 12/05/2024 Encounters Date Type Department Care Team Description 03/03/2025 11:45 AM CDT Office Visit [facility] at [address] [place] [address] Nikki Coleman NP Hypotension, unspecified hypotension type; Fatigue, unspecified type; Light-headedness 02/22/2025 10:00 AM CDT Office Visit [facility] Primary Care at [address] [address] Nathaniel Torres NP Annual physical exam (Primary Dx); Hypotension, unspecified hypotension type; Neck fullness; Voice hoarseness 01/26/2025 1:30 PM PROMOTIONS INTERN Ancillary Procedure [facility] Cardiology at [address] [place] [address] Hypotension, unspecified hypotension type 01/26/2025 Results Follow-Up [facility] Primary Care at [address] [address] Nathaniel Torres NP Hypotension, unspecified hypotension type (Primary Dx); Fatigue, unspecified type; Light-headedness 01/12/2025 2:30 PM PROMOTIONS INTERN Office Visit [facility] [address] [place] [address] Medical Office Bldg [address] [place] [address] Jason Franz MD Anemia, unspecified type (Primary Dx); Other decreased white blood cell (WBC) count; Lyme disease 01/12/2025 2:00 PM PROMOTIONS INTERN Lab [facility] at [address] [place] [address] Anemia, unspecified type (Primary Dx); Other decreased white blood cell (WBC) count 01/11/2025 Telephone [facility] [address] [place] [address] Office [facility] [address] [place] [address] Arminda Brown, CLT 01/10/2025 1:00 PM PROMOTIONS INTERN Office Visit [facility] Primary Care at [address] [phone] Nathaniel Torres NP Hypotension, unspecified hypotension type (Primary Dx); Complaints of total body pain; Fatigue, unspecified type 12/29/2024 2:00 PM PROMOTIONS INTERN Lab [facility] [address] [facility] [address] [place] [address] Anemia, unspecified type; Other decreased white blood cell (WBC) count 12/29/2024 1:30 PM PROMOTIONS INTERN Office Visit [address] [place] [address] Jason Franz MD Anemia, unspecified type; Other decreased white blood cell (WBC) count; Complaints of total body pain; Fatigue, unspecified type; Abnormally prolonged clotting time 12/28/2024 Telephone [facility] [address] [place] [address] B [facility] [address] [place] [address] Arminda Brown, CLT 12/09/2024 Telephone [facility] [address] [place] [address] B [facility] [address] [place] [address] Darlene Mccormick, CLT from Last 3 Months Immunizations Immunization Administration Dates Next Due DTP 05/04/1997,04/28/1994,1993 ,1993 HPV, Quadrivalent 11/21/2009 HPV9 03/15/2019,09/29/2018 Hep A, Pediatric 06/15/2003 Hep B, Adolescent or Pediatric 04/28/1994,1992,1993 HiB 08/29/1994,04/28/1994,1993 ,1993 MMR 08/29/2002,08/29/1994 Meningococcal MCV4P (Menactra) 11/21/2009 OPV 05/04/1997,04/28/1994,1993 ,1993 Tdap 04/26/2012 Varicella 11/21/2009,06/15/2003 Medical History Medical History Date Comments Iron deficiency anemia, unspecified Family History Medical History Relation Name Comments No Known Problems Father No Known Problems Mother Relation Name Status Comments Father Mother Social History Tobacco Use Types Packs/Day Years Used Date Smoking Tobacco: Never Cigarettes Smokeless Tobacco: Never Tobacco Cessation:Counseling Given: Not Answered PHQ-2 Answer Date Recorded PHQ-2 Total Score (If total score is 3 or more points, staff should administer the PHQ-9) 0 02/22/2025 Comments Unknown Sex and Gender Information Value Date Recorded Sex Assigned at Not on file Legal Sex Female 8:02 PM PROMOTIONS INTERN Gender Identity Female 08/07/2024 12:23 PM CDT Sexual Orientation Straight 08/07/2024 12 :23 PM CDT Obstetrics History Last Filed Vital Signs Vital Sign Reading [...] 03/03/2025 12:23 PM CDT Plan of Treatment Health Maintenance Due Date Last Done Comments Hepatitis C Screening 1995 DTaP/Tdap/Td Vaccine (6 - Td or Tdap) 04/26/2022 04/26/2012, 05/04/1997, 04/28/1994, Additional history exists Influenza Vaccine (Season Ended) 2025 Cervical Cancer Screening 10/22/2025 Po stponed from 1993 (Patient declined, but will receive in the future) Depression Screening 02/22/2026 02/22/2025, 01/10/2025, 12/05/2024 Regular Well Visit/Exam 18-64 02/22/2026 02/22/2025 Hepatitis B Screening Completed 04/28/1994 , 1993, 1993 Varicella Vaccines Completed 11/21/2009, 06/15/2003 HPV Vaccines Completed 03/15/2019, 11/0 05/2018, 11/21/2009 Pneumococcal vaccine <65 Aged Out No longer eligible based on patient's age to complete this topic Procedures Procedure Name Priority Date/Time Associated Diagnosis Comments TRANSTHORACIC ECHO (TTE) COMPLETE W DOPPLER/CF WO CONTRAST Routine 01/26/2025 2:41 PM PROMOTIONS INTERN Hypotension, unspecified hypotension type DIFFERENTIAL AUTO Routine 01/12/2025 1:5 0 PM PROMOTIONS INTERN Anemia, unspecified type CBC WITH AUTO DIFFERENTIAL Routine 01/12/2025 1:50 PM PROMOTIONS INTERN Anemia, unspecified type ECG 12-LEAD Routine 01/10/2025 3:01 PM PROMOTIONS INTERN Hypotension, unspecified hypotension type HEMOGLOBIN CONFIRMATION, ACID ELECTROPHORESIS Routine 12/29/2024 2:00 PM PROMOTIONS INTERN Anemia, unspecified type Other decreased white blood cell (WBC) count SLIDE REVIEW - PATHOLOGIST Routine 12/29/2024 2:00 PM PROMOTIONS INTERN Anemia, unspecified type Other decreased white blood cell (WBC) count DIFFERENTIAL AUTO Routine 12/29/2024 2:0 0 PM PROMOTIONS INTERN Anemia, unspecified type Other decreased white blood cell (WBC) count RETICULOCYTES Routine 12/29/2024 2:00 PM PROMOTIONS INTERN Anemia, unspecified type Other decreased white blood cell (WBC) count HAPTOGLOBIN Routine 12/29/2024 2:00 PM PROMOTIONS INTERN Anemia, unspecified type Other decreased white blood cell (WBC) count LACTATE DEHYDROGENASE Routine 12/29/2024 2:00 PM PROMOTIONS INTERN Anemia, unspecified type Other decreased white blood cell (WBC) count T4, FREE Routine 12/29/2024 2:00 PM PROMOTIONS INTERN Anemia, unspecified type Other decreased white blood cell (WBC) count TSH Routine 12/29/2024 2:00 PM PROMOTIONS INTERN Anemia, unspecified type Other decreased white blood cell (WBC) count FOLATE Routine 12/29/2024 2:00 PM PROMOTIONS INTERN Anemia, unspecified type Other decreased white blood cell (WBC) count CBC WITH AUTO DIFFERENTIAL Routine 12/29/2024 2:00 PM PROMOTIONS INTERN Anemia, unspecified type Other decreased white blood cell (WBC) count COPPER, SERUM Routine 12/29/2024 2:00 PM PROMOTIONS INTERN Anemia, unspecified type Other decreased white blood cell (WBC) count HEMOGLOBIN ANALYSIS BY ELECTROPHORESIS Routine 12/29/2024 2:00 PM PROMOTIONS INTERN Anemia, unspecified type Other decreased white blood cell (WBC) count SURGICAL PATHOLOGY Routine 12/29/2024 8: 30 AM PROMOTIONS INTERN from Last 3 Months Results * TRANSTHORACIC ECHO (TTE) COMPLETE W DOPPLER/CF WO CONTRAST (01/26/2025 2:41 PM PROMOTIONS INTERN) LV EF 60 % CONS SCIMAGE Anatomical Region Laterality Modality Ultrasound 01/26/2025 1:26 PM PROMOTIONS INTERN Narrative 01/26/2025 4:21 PM PROMOTIONS INTERN [facility] Cardiology [address], [address], [place] [address] P:[phone] P:[phone] Echocardiographic Report Patient Name: CORAL VANESSA Wilder : 1995 Study Date: 01/26/2025 1:26:26 PM [...] FINDINGS: Interpretation Site: Exam was interpreted at [facility]. Left Ventricle: Normal left ventricular size. Normal [...] valve. Electronically Signed By: Lawson Bowling MD, [facility] 01/26/2025 4:21:08 PM PROMOTIONS INTERN Procedure Note Lawson Bowling MD - 01/26/2025 [facility] Cardiology [address] [facility], [address], [place] [address] P:[phone] P:[phone] Echocardiographic Report Patient Name: CORAL VANESSA D [...] FINDINGS: Interpretation Site: Exam was interpreted at [facility]. Left Ventricle: Normal left ventricular size. Normal [...] valve. Electronically Signed By: Lawson Bowling MD, FACC 01/26/2025 4:21:08 PM PROMOTIONS INTERN us Nathaniel Torres NP CV ECHO PROCEDURES Final Result * Differential, auto (01/12/2025 1:50 PM PROMOTIONS INTERN) Neutrophil abs 2.1 1.5 - 6.5 K/cumm Comment:Testing performed by : [facility], [address], [place], [address] Imm gran abs 0.0 0.0 - 0.1 K/cumm [facility]) Comment:Testing performed by : [facility], [facility], [place], [address] Lymphocyte abs 1.2 0.8 - 3.3 K/cumm [facility]) Comment:Testing performed by : [facility], [facility], [place], [address] Monocyte abs 0.2 0.2 - 0.8 K/cumm [facility]) Comment:Testing performed by : [facility], [facility], [place], [address] Eosinophil abs 0.1 0.0 - 0.5 K/cumm [facility]) Comment:Testing performed by : [facility], [facility], [place], [address] Basophil abs 0.0 0.0 - 0.1 K/cumm [facility]) Comment:Testing performed by : [place], [address] Neutrophil pct 58.4 % [facility] Comment: Interpretive Data Percent cell count reference ranges are not reported, since discordance with absolute values may lead to misinterpretation of CBC data. Current Interpretive Data was last revised on 2018. Testing performed by: [place], [address] Imm gran pct 0.0 % [facility] [place] Comment: Interpretive Data Percent cell count reference ranges are not reported, since discordance with absolute values may lead to misinterpretation of CBC data. Current Interpretive Data was last revised on 2018. Testing performed by: [place], [address] Lymphocyte pct 32.3 % [facility] Comment: Interpretive Data Percent cell count reference ranges are not reported, since discordance with absolute values may lead to misinterpretation of CBC data. Current Interpretive Data was last revised on 2018. Testing performed by: [place], [address] Monocyte pct 6.3 % [facility] [place] Comment: Interpretive Data Percent cell count reference ranges are not reported, since discordance with absolute values may lead to misinterpretation of CBC data. Current Interpretive Data was last revised on 2018. Testing performed by: [facility], [facility], [place], [address] Eosinophil pct 2.2 % [facility] Comment: Interpretive Data Percent cell count reference ranges are not reported, since discordance with absolute values may lead to misinterpretation of CBC data. Current Interpretive Data was last revised on 2018. Testing performed by: [facility], [place], [address] Basophil pct 0.8 % [facility] Comment: Interpretive Data Percent cell count reference ranges are not reported, since discordance with absolute values may lead to misinterpretation of CBC data. Current Interpretive Data was last revised on 2018. Testing performed by: [facility], [place], [address] Blood 01/12/2025 1:50 PM PROMOTIONS INTERN 01/12/2025 2:23 PM PROMOTIONS INTERN us Jason Franz MD LAB BLOOD ORDERABLES Celsa montemayor Result [facility]) [address] [facility] [place] [address] * (ABNORMAL) CBC with auto differential (01/12/2025 1:50 PM PROMOTIONS INTERN) WBC 3.7(L) 3.8 - 9.9 K/cumm Comment:Testing performed by : [place], [address] Hgb 11.9 11.9 - 15.5 g/dL [facility]) Comment:Testing performed by : [facility], [place], [address] Hct 36.5 35.6 - 45.5 % [facility] Comment:Testing performed by : [place], [address] Plt 223 150 - 400 K/cumm [facility] ([place]) Comment:Testing performed by : [facility], [place], [address] MPV 10.0 9.1 - 12.3 fL [facility]) Comment:Testing performed by : [place], [address] RBC 4.37 3.90 - 5.20 M/cumm [facility]) Comment:Testing performed by : [place], [address] MCV 83.5 81.3 - 96.4 fL [facility]) Comment:Testing performed by : [place], [address] MCH 27.2 27.1 - 33.3 pg [facility]) Comment:Testing performed by : [place], [address] MCHC 32.6 32.3 - 35.7 g/dL [facility]) Comment:Testing performed by : [place], [address] RDW CV 12.2 11.1 - 14.9 % [facility]) Comment:Testing performed by : [place], [address] RDW SD 37.3 35.7 - 48.1 fL [facility]) Comment:Testing performed by : [facility], [place], [address] NRBC abs 0.00 0.00 - 0.01 K/cumm [facility]) Comment:Testing performed by : [place], [address] Blood 01/12/2025 1:50 PM PROMOTIONS INTERN 01/12/2025 2:23 PM PROMOTIONS INTERN us Jason Franz MD LAB BLOOD ORDERABLES Celsa l Result [facility] [place]) [address] [place] [address] Department [place] [address] * ECG 12-LEAD (01/10/2025 3:01 PM PROMOTIONS INTERN) Narrative Nathaniel Torres NP - 01/10/2025 3:01 PM PROMOTIONS INTERN Nathaniel Torres NP 01/10/2025 3:02 PM ECG 12 lead Date/Time: 01/10/2025 3:01 PM Performed by: Nathaniel Torres NP Authorized by: Nathaniel Torres NP Rhythm: sinus rhythm Ectopy: infrequent PVCs Rate: normal QRS axis: normal Conduction: incomplete RBBB ST Segments: ST segments normal T Waves: T waves normal us Nathaniel Torres WORK MEASUREMENT ENGINEER ECG ORDERABLES Final Result * Slide review - pathologist (12/29/2024 2:00 PM PROMOTIONS INTERN) Slide review by Dr. Lewis Comment: Interpretive Data See Clinical Pathology Report under Media section in [employer]. Current Interpretive Data was last revised on 2018. Testing performed by: [facility], [address] [facility], [place], [address] Blood 12/29/2024 2:00 PM PROMOTIONS INTERN 12/29/2024 2:24 PM PROMOTIONS INTERN us Jason Franz MD LAB BLOOD ORDERABLES Celsa l Result [facility] [address] [facility] [place] [address] * Differential, auto (12/29/2024 2:00 PM PROMOTIONS INTERN) Neutrophil abs 1.8 1.5 - 6.5 K/cumm Comment:Testing performed by : [facility] [address], Medical Office [facility] [address], [place] [address] Imm gran abs 0.0 0.0 - 0.1 K/cumm [facility]) Comment:Testing performed by : [facility] [address], Medical Office [facility] [address], [place] [address] Lymphocyte abs 1.4 0.8 - 3.3 K/cumm [facility]) Comment:Testing performed by : [facility] [address], Medical Office [facility] [address], [place] [address] Monocyte abs 0.2 0.2 - 0.8 K/cumm [facility]) Comment:Testing performed by : [facility] [address], Medical Office [facility] [address], [place] [address] Eosinophil abs 0.1 0.0 - 0.5 K/cumm [facility]) Comment:Testing performed by : [facility] [address], Medical Office [address], [place] [address] Basophil abs 0.0 0.0 - 0.1 K/cumm [facility] ([place]) Comment:Testing performed by : [facility] [address], Medical Office [facility] [address], [place] [address] Neutrophil pct 51.4 % [facility] Comment: Interpretive Data Percent cell count reference ranges are not reported, since discordance with absolute values may lead to misinterpretation of CBC data. Current Interpretive Data was last revised on 2022. Testing performed by: [facility] [address], Medical Office [facility] [address], [place] [address] Imm gran pct 0.0 % [facility] Comment: Interpretive Data Percent cell count reference ranges are not reported, since discordance with absolute values may lead to misinterpretation of CBC data. Current Interpretive Data was last revised on 2022. Testing performed by: [facility] [address], Medical Office [facility] [address], [place] [address] Lymphocyte pct 38.6 % [facility] Comment: Interpretive Data Percent cell count reference ranges are not reported, since discordance with absolute values may lead to misinterpretation of CBC data. Current Interpretive Data was last revised on 2022. Testing performed by: [facility] [address], Medical Office [facility] B [facility] [address], [place] [address] Monocyte pct 6.3 % [facility] Comment: Interpretive Data Percent cell count reference ranges are not reported, since discordance with absolute values may lead to misinterpretation of CBC data. Current Interpretive Data was last revised on 2022. Testing performed by: [facility] [address], Medical Office [address], [place] [address] Eosinophil pct 2.6 % [facility] Comment: Interpretive Data Percent cell count reference ranges are not reported, since discordance with absolute values may lead to misinterpretation of CBC data. Current Interpretive Data was last revised on 2022. Testing performed by: [facility] [address], Medical Office [facility] [address], [place] [address] Basophil pct 1.1 % [facility] ([place] Comment: Interpretive Data Percent cell count reference ranges are not reported, since discordance with absolute values may lead to misinterpretation of CBC data. Current Interpretive Data was last revised on 2022. 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 Comment:Testing performed by : [facility], [address] [place]., [address] Blood 12/29/2024 2:00 PM PROMOTIONS INTERN 12/29/2024 4:57 PM PROMOTIONS INTERN us Jason Franz MD LAB BLOOD ORDERABLES Celsa l Result [facility] [address] [facility] [place] [address] * (ABNORMAL) CBC with auto differential (12/29/2024 2:00 PM PROMOTIONS INTERN) WBC 3.5(L) 3.8 - 9.9 K/cumm Comment:Testing performed by : [facility] [address], Medical Office [facility] [address], [place] [address] Hgb 12.1 11.9 - 15.5 g/dL [facility] ([place]) Comment:Testing performed by : [facility] [address], Medical Office [address], [place] [address] Hct 34.6(L) 35.6 - 45.5 % [facility] ([place] Comment:Testing performed by : [facility] [address], Medical Office [facility] [address], [place] [address] Plt 242 150 - 400 K/cumm [facility] ([place]) Comment:Testing performed by : [facility] [address], Medical Office [facility] [address], [place] [address] MPV 9.3 9.1 - 12.3 fL [facility] ([place]) Comment:Testing performed by : [facility] [address], Medical Office [facility] [address], [place] [address] RBC 4.44 3.90 - 5.20 M/cumm [facility] ([place]) Comment:Testing performed by : [facility] [address], Medical Office [facility] [address], [place] [address] MCV 77.9(L) 81.3 - 96.4 fL [facility] ([place]) Comment:Testing performed by : [facility] [address], Medical Office [facility] B [facility] [address], [place] [address] MCH 27.3 27.1 - 33.3 pg [facility] ([place]) Comment:Testing performed by : [facility] [address], Medical Office [facility] [address], [place] [address] MCHC 35.0 32.3 - 35.7 g/dL [facility] ([place]) Comment:Testing performed by : [facility] [address], Medical Office [facility] [address], [place] [address] RDW CV 12.3 11.1 - 14.9 % [facility] ([place] Comment:Testing performed by : [facility] [address], Medical Office [facility] [address], [place] [address] RDW SD 35.3(L) 35.7 - 48.1 fL [facility] ([place] Comment:Testing performed by : [facility] [address], Medical Office [facility] [address], [place] [address] NRBC abs Not Measured 0.00 - 0.01 K/cumm [facility] ([place] Comment:Testing performed by : [facility] [place], [address] [facility] , Medical Office [address], [place] [address] Blood 12/29/2024 2:00 PM PROMOTIONS INTERN 12/29/2024 2:09 PM PROMOTIONS INTERN us Jason Franz MD LAB BLOOD ORDERABLES Celsa l Result [facility] [address] [facility] [place] [address] * (ABNORMAL) Hemoglobin analysis by electrophoresis (12/29/2024 2:00 PM PROMOTIONS INTERN) RBC 4.44 3.90 - 5.20 M/cumm Comment:Testing performed by : [facility], [address] [place] [address], [address] Hgb 12.1 11.9 - 15.5 g/dL [facility] ([place]) Comment:Testing performed by : [facility], [address] [place]., [address] MCV 83.6 81.3 - 96.4 fL [facility] ([place] Comment:Testing performed by : [facility], [address] [place]., [address] Rdw 12.5 11.1 - 14.9 % [facility] ([place] Comment:Testing performed by : [facility], [address] [place]., [address] Hgb electrophores is, interp 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 [facility] ([place]) Comment:Testing performed by : [facility], [address] [place]., [address] Hgb A 59.7(L) 96.0 - 98.5 % [facility] ([place] Comment:Testing performed by : [facility], [address] [place]., [address] Hgb A2 3.5(H) 1.5 - 3.2 % [facility] ([place] Comment:Testing performed by : [facility], [address] [place]., [address] Hgb F 1.3(H) 0.0 - 0.9 % [facility] ([place] Comment:Testing performed by : [facility], [address] [place]., [address] Hgb S 35.5(H) 0.0 - 0.0 % [facility] ([place] Comment:Testing performed by : [facility], [address] [place]., [address] Blood 12/29/2024 2:00 PM PROMOTIONS INTERN 12/29/2024 4:46 PM PROMOTIONS INTERN us Jason Franz MD LAB BLOOD ORDERABLES Celsa l Result [facility] [address] [facility] [place] [address] * (ABNORMAL) Copper, serum (12/29/2024 2:00 PM PROMOTIONS INTERN) Copper 74(L) 77 - 206 mcg/dL [facility] ref Lab Comment: ADDITIONAL INFORMATION This test was developed and its performance characteristics determined by [facility] in a manner consistent with CLIA requirements. This test has not been cleared or approved by the U.S. Food and Drug Administration. Test Performed by: [facility] Laboratories - [facility] [address] [place] [address] Gun Perforator: Kiki Nascimento Ph.D.; CLIA# [id number] Testing performed by: [facility], [address] [facility], [place], [address] Blood 12/29/2024 2:00 PM PROMOTIONS INTERN 12/29/2024 2:24 PM PROMOTIONS INTERN us Jason Franz MD LAB BLOOD ORDERABLES Celsa l Result [facility] ([place]) 1 [facility] [place] [address] Plata ref Lab * Reticulocyte Count (12/29/2024 2:00 PM PROMOTIONS INTERN) [facility] Retics, absolute 0.045 0.020 - 0.087 M/cumm Comment:Testing performed by : [facility], [facility], [place], [address] Retics 1.0 0.4 - 2.9 % [facility] ([place]) Comment:Testing performed by : [place], [address] Reticulocyte Hgb 31.2 30.5 - 38.0 pg [facility] ([place]) Comment:Testing performed by : [facility], [place], [address] Blood 12/29/2024 2:00 PM PROMOTIONS INTERN 12/29/2024 2:38 PM PROMOTIONS INTERN us Jason Franz MD LAB BLOOD ORDERABLES Celsa l Result Performing Organization Address City/[facility]/ZIP Co de Phone Number [facility] ([place]) 1 [facility] [place] [address] * TSH (12/29/2024 2:00 PM PROMOTIONS INTERN) [facility] Thyroid Stimulating Hormone 2.14 0.30 - 4.20 mcIUnit/mL Comment:Testing performed by : [facility], [place], [address] Blood 12/29/2024 2:00 PM PROMOTIONS INTERN 12/29/2024 2:24 PM PROMOTIONS INTERN us Jason Franz MD LAB BLOOD ORDERABLES Celsa l Result [facility] ([place]) 1 [facility] [place] [address] * T4, free (12/29/2024 2:00 PM PROMOTIONS INTERN) Free T4 1.14 0.90 - 1.70 ng/dL Comment:Testing performed by : [facility], [place], [address] Blood 12/29/2024 2:00 PM PROMOTIONS INTERN 12/29/2024 2:24 PM PROMOTIONS INTERN us Jason Franz MD LAB BLOOD ORDERABLES Celsa l Result [facility] ([place]) [address] [place] [address] [place] [address] * Lactate dehydrogenase (LD) (12/29/2024 2:00 PM PROMOTIONS INTERN) [facility] Lactate dehydrogenase (LDH) 133 100 - 250 Units/L Comment:Testing performed by : [facility], [place], [address] Blood 12/29/2024 2:00 PM PROMOTIONS INTERN 12/29/2024 2:24 PM PROMOTIONS INTERN us Jason Franz MD LAB BLOOD ORDERABLES Celsa l Result [facility] ([place]) [address] [place] [address] [place] [address] * Haptoglobin (12/29/2024 2:00 PM PROMOTIONS INTERN) [facility] Haptoglobin 105 30 - 200 mg/dL Comment:Testing performed by : [facility], [address] [place] [address]., [id number] Blood 12/29/2024 2:00 PM PROMOTIONS INTERN 12/30/2024 11:15 AM PROMOTIONS INTERN us Jason Franz MD LAB BLOOD ORDERABLES Celsa l Result [facility] [place]) 1 [facility] [place] [address] * Folate (12/29/2024 2:00 PM PROMOTIONS INTERN) Pathologist [facility] Folic acid 19.4 >=5.0 ng/mL Comment: Slightly Hemolyzed Specimen. Results may be affected. Testing performed by: [facility], [facility], [place], [address] Blood 12/29/2024 2:00 PM PROMOTIONS INTERN 12/29/2024 2:24 PM PROMOTIONS INTERN us Jason Franz MD LAB BLOOD ORDERABLES Celsa l Result [facility] [place]) 1 [facility] [place] [address] * Surgical pathology (12/29/2024 8:30 AM PROMOTIONS INTERN) Miscellaneous 12/29/2024 8:3 0 AM PROMOTIONS INTERN 12/30/2024 8:30 AM PROMOTIONS INTERN Narrative 12/30/2024 9:35 AM PROMOTIONS INTERN EPIC results best viewed via link to PDF [facility] Department of Pathology [address] [place] [id number] Final Report Note to Patients: This report [...] the details. Patient Name: CORAL VANESSA Address: [address] [place] [address] Gender: F : 1995 (Age: 29) Service: Location: [facility] #: [id number] Patient Type: B MED ONC SERIES Taken: 12/29/2024 Received: 12/30/2024 [...] determined by the Surgical Pathology Department at [facility] as part of an ongoing housing quality standard inspector program and in compliance with federally mandated [...] characteristics determined by the Surgical Pathology Department [facility]. It has not been cleared or approved by the U. [place]. Food and Drug Administration. REPORT IMAGES AND SCANNED DOCUMENTS, IF INCLUDED, ONLY VIEWABLE IN PDF VERSION OF REPORTe o Jason Franz MD LAB PATHOLOGY ORDERABLES Final Result from Last 3 Months Insurance [facility] Care Teams Hospitality House Supervisor Relationship Specialty Start Date End Date Nathaniel Torres NP [address] [facility] [address] [place] [address] PCP - General Family Medicine 12/05/24 Kim John NP [address] [place] [address] [address] [place] [address] Nurse Practitioner Obstetrics and Gynecology 02/22/25
--- OUTSIDE RECORDS SUMMARY | 2025-03-09 08:26 | XMS_ITS | Data Portability ---
Author Organization [facility] Address [address] [place] [address] Assessment Encounter Date Assessment Date Assessment LastModified by Organization Details LastModified Time 02/26/2022 02/26/2022 Coral is a 26 y.o. alert female who has her second nexplanon inserted. Nexplanon was due out last year. Neg. UPT today. Palpable intact nexplanon palpated in left medical epicondyle space. Discussed s/e and risk of bcp use. Aware of no control coverage. Pt. to start this Thursday and RTC for removal and later for annual exam. Not available 02/26/2022 11:19:59 06/25/2022 06/25/2022 Coral is a 27 y.o. alert female with a hx. of herpes and chlamydia. Stopped taking anti-viral medication due to her having the same partner. Now not having sex so no longer taking medication. Has been having BV like discharge with no improvement with using an OTC suppository. Has an nexplanon and missed last removal appointment. Has not had a cycle since 2019 and desires to start bcp so that her cycle will return. BCP s/e and risk counseling. Does not have any contraindicating illnesses for bcp use.Annual exam positive for heavy thin white vaginal discharge. Labs, pap today. Pt. to RTC for nexplanon removal. Not available 06/25/2022 10:55:02 Plan of Treatment Reminders Order Date Submit Date Provider Last Modified By Organization Details Last Modified Time Details Appointments None recorded. Lab test, urine 2021 022 [email or web address] In-Office Order, Internal Use Only DO Not Attach Compendium DO Not Attach Compendium, Do Not Delete/merge, [id number] 2 10:39:22 pap, IG + CT/NG/TV + HR HPV + reflex HPV (16+18+45) 2021 [facility] (Lab), [address], [place], [address], 2 12:10:38 HIV (1+2) Ab screen, serum 2021 [facility] (Lab), [address], [place], [address], 07:14:53 HBsAg (hepatitis B surface Ag), serum 2021 [facility] (Lab), [address], [place], [address], 2 11:14:56 RPR (rapid plasma reagin), serum 2021 022 [facility] (Lab), [address], [place], [address], 2 11:14:53 CBC w/ auto diff 2021 [facility] (Lab), [address], [place], [address], 2 15:25:28 CMP, serum or plasma 2021 [facility] (Lab), [address], [place], [address], 2 16:01:36 test, urine 2021 022 In-Office Order, Internal Use Only DO Not Attach Compendium DO Not Attach Compendium, Do Not Delete/merge, [id number] 2 11:13:55 wet mount, vaginal 2018 019 In-Office Order, Internal Use Only DO Not Attach Compendium DO Not Attach Compendium, Do Not Delete/merge, [id number] 9 14:35:00 seble wet prep 2018 019 [email or web address] In-Office Order, Internal Use Only DO Not Attach Compendium DO Not Attach Compendium, Do Not Delete/merge, [id number] 9 14:35:00 RPR (rapid plasma reagin), serum 2018 019 [facility] (Lab), [address], [place], [address], 9 07:10:25 hepatitis C Ab, serum 2018 019 [facility] (Lab), [address], [place], [address], 9 07:10:24 HBsAg (hepatitis B surface Ag), serum 2018 019 [facility] (Lab), [address], [place], [address], 9 07:10:27 HIV (1+2) Ab screen, serum 2018 019 [facility] (Lab), [address], [place], [address], 9 07:10:28 CT + NG + TV, DNA, urine/swab 2018 019 [facility] (Lab), [address], [place], [address], 9 02:07:06 wet mount, vaginal 2018 019 [email or web address] In-Office Order, Internal Use Only DO Not Attach Compendium DO Not Attach Compendium, Do Not Delete/merge, [id number] 9 12:24:00 seble wet prep 2018 019 [email or web address] In-Office Order, Internal Use Only DO Not Attach Compendium DO Not Attach Compendium, Do Not Delete/merge, [id number] 9 12:24:00 RPR (rapid plasma reagin), serum 2018 019 [facility] (Lab), [address], [place], [address], 9 05:09:18 hepatitis C Ab, serum 2018 019 [facility] (Lab), [address], [place], [address], 9 04:10:43 HBsAg (hepatitis B surface Ag), serum 2018 019 [facility] (Lab), [address], [place], [address], 9 05:09:17 HIV (1+2) Ab screen, serum 2018 019 [facility] (Lab), [address], [place], [address], 9 04:10:42 CT + NG + TV, DNA, urine/swab 2018 019 [facility] (Lab), [address], [place], [address], 9 11:16:44 test, urine 2018 019 [email or web address] In-Office Order, Internal Use Only DO Not Attach Compendium DO Not Attach Compendium, Do Not Delete/merge, [id number] 9 12:23:01 Referral None recorded. Procedures None recorded. Surgeries None recorded. Imaging None recorded. Medication Orders cephalexin 500 mg capsule [email or web address] [id number], [address], [place], [place], [id number], 2 16:19:23 metronidazo le 500 mg tablet 2021 022 [facility] #40494, [address], [place], [place], [id number], 2 10:34:23 Sprintec (28) 0.25 mg-0.035 mg tablet [address] [facility]29727, [address], [place], [place], [id number], 2 10:40:13 Sprintec (28) 0.25 mg-0.035 mg tablet [address] [facility] #06364, [address], [place], [place], [id number], 2 10:26:27 Flagyl 500 mg tablet [address] [facility] #53983, [address] , [place], [place], [id number], 2 10:26:18 Diflucan 150 mg tablet [address] [facility] #28683, [address] , [place], [place], [id number], 2 10:26:06 Patient Targets Encounter Date Encounter Id Patient Goals Patient Target Last Modified By Organization Details Last Modified Time Continued prevention Not available 02/26/2022 11:18:39 To have nexplanon removed Not available 06/25/2022 10:55:23 Patient Instructions Encounter Date Encounter Id Patient Instructions Last Modified By Organization Details Last Modified Time 12/20/2018 [id number] 23y presents for Nexplanon check 1.) Contraception Nexplanon in place, reported irregular bleeding (spotting) 2.) STI screening - Hep B, Hep C, RPR, and HIV ordered. Ct/gc obtained 3.) Wet prep performed Rx: Diflucan 4.) Decline flu vaccine 5.) s/p Gardasil #2 (given 09/29/18) 6.) RTC in January for Gardasil #3 Not available 12/20/2018 14:57:06 03/15/2019 [id number] 24y with unscheduled bleeding with Nexplanon, vaginal d/c, and foot lesion 1.) Unscheduled bleeding one isolated heavy bleeding episode, reassured pt 2.) Contraception Nexplanon placed 3.) Vaginal d/c wet prep performed, Rx: Flagyl 4.) STI screening Hep B, Hep C, RPR, and HIV ordered. Ct/gc obtained 5.) Gardasil #3 given 6.) Foot lesion expectant management 7.) RTC prn [email or web address] Not available 03/15/2019 15:16:45 02/26/2022 [id number] Pt. informed to use back up control x the first 7 days of bcp start. Not available 02/26/2022 11:19:32 06/25/2022 [id number] Pt. counseled on use, risk of bcp Not available 06/25/2022 10:55:44 Reason for Referral None Reported. Results Created Date Observation Date Name Description Value Unit Range Abnormal Flag Note LastModifiedBy Organization Detail LastModifiedTime 12/20/19 19 12/20/2018 pregn chuck test, urine HCG negati ve Not Available In-Office Order Internal Use Only DO Not Attach Compendium DO Not Attach Compendium, Do Not Delete/merge, [id number] 12/20/2018 12:08:06 12/20/19 19 12/21/2018 HIV (1+2) Ab scree n, serum HIV 4TH generation Non Reacti ve non reacti ve Not Available [facility] (Lab) [address], [place], [address], 12/21/2018 04:10:42 12/20/19 19 12/21/2018 hepat itis C Ab, serum HCV antibody 0.2 s/co_ ratio 0.0-0. 9 Not Available [facility] (Lab) [address] [place], [address], 12/21/2018 04:10:43 12/20/19 19 12/21/2018 hepat itis C Ab, serum HCV comment 1 SPRCS Non react coni HCV antib bossman michael n is consi stent with no HCV infec tion, unles s recen t infec tion is suspe cted or other evide nce exist s to indic ate HCV infec tion. Not Available [facility] (Lab) [address] [place], [address], 12/21/2018 04:10:43 12/20/1912/21/2018 HBsAg (hepa titis B surfa ce Ag), serum HBsAg screen Negati ve negati ve Not Available [facility] (Lab) [address] [facility], [place], [address], 12/21/2018 05:09:17 12/20/19 19 12/21/2018 RPR (rapi d plasm a reagi n), serum RPR Non Reacti ve non reacti ve Not Available [facility] (Lab) [address] [place], [address], 12/21/2018 05:09:18 12/20/19 19 12/22/2018 CT + NG + TV, DNA, urine /swab chlamydia by SONYA Negati ve negati ve Not Available [facility] (Lab) [address] [place], [address], 12/22/2018 11:16:44 12/20/1912/22/2018 CT + NG + TV, DNA, urine /swab gonococcus by SONYA Negati ve negati ve Not Available [facility] (Lab) [address] [place], [address], 12/22/2018 11:16:44 12/20/1912/22/2018 CT + NG + TV, DNA, urine /swab trich vag by SONYA Negati ve negati ve Not Available [facility] (Lab) [address] [place], [address], 12/22/2018 11:16:44 12/20/19 19 12/20/2018 seble wet prep Yeast positi ve Not Available In-Office Order Internal Use Only DO Not Attach Compendium DO Not Attach Compendium, Do Not Delete/merge, [id number] 12/20/2018 12:23:38 12/20/19 19 12/20/2018 wet mount [email or web address] Clue Cells negati ve Not Available In-Office Order Internal Use Only DO Not Attach Compendium DO Not Attach Compendium, Do Not Delete/merge, [id number] 12/20/2018 12:23:37 12/20/19 19 12/20/2018 wet mount bernabe Trichomonas negati ve Not Available In-Office Order Internal Use Only DO Not Attach Compendium DO Not Attach Compendium, Do Not Delete/merge, [id number] 12/20/2018 12:23:37 03/15/20 19 03/16/2019 hepat itis C Ab, serum HCV antibody <0.1 s/co_ ratio 0.0-0. 9 Not Available [facility] (Lab) [address] [place], [address], 03/16/2019 07:10:24 03/15/2003/16/2019 hepat itis C Ab, serum HCV comment 1 SPRCS Non react coni HCV antib bossman scree n is consi stent with no HCV infec tion, unles s recen t infec tion is suspe cted or other evide nce exist s to indic ate HCV infec tion. Not Available [facility] (Lab) [address] [place], [address], 03/16/2019 07:10:24 03/15/2003/16/2019 RPR (rapi d plasm a reagi n), serum RPR Non Reacti ve non reacti ve Not Available [facility] (Lab) [address] [place], [address], 03/16/2019 07:10:25 03/15/20 19 03/16/2019 HBsAg (hepa titis B surfa ce Ag), serum HBsAg screen Negati ve negati ve Not Available [facility] (Lab) [address] [place], [address], 03/16/2019 07:10:27 03/15/20 19 03/16/2019 HIV (1+2) Ab scree n, serum HIV 4TH generation Non Reacti ve non reacti ve Not Available [facility] (Lab) [address] [facility], [place], [address], 03/16/2019 07:10:28 03/15/20 19 03/17/2019 CT + NG + TV, DNA, urine /swab chlamydia by SOYNA Positi ve negati ve abnormal . Not Available [facility] (Lab) [address] [facility], [place], [address], 03/17/2019 02:07:06 03/15/20 19 03/17/2019 CT + NG + TV, DNA, urine /swab gonococcus by SONYA Negati ve negati ve Not Available [facility] (Lab) [address] [facility], [place], [address], 03/17/2019 02:07:06 03/15/20 19 03/17/2019 CT + NG + TV, DNA, urine /swab trich vag by SONYA Negati ve negati ve Not Available [facility] (Lab) [address] [facility], [place], [address], 03/17/2019 02:07:06 03/15/20 19 03/15/2019 seble wet prep Yeast negati ve Not Available In-Office Order Internal Use Only DO Not Attach Compendium DO Not Attach Compendium, Do Not Delete/merge, 03/15/2019 14:34:30 03/15/2003/15/2019 wet mount , vagin al Clue Cells positi ve Not Available In-Office Order Internal Use Only DO Not Attach Compendium DO Not Attach Compendium, Do Not Delete/merge, [id number] 03/15/2019 14:34:30 03/15/20 19 03/15/2019 wet mount , vagin al Trichomonas negati ve Not Available In-Office Order Internal Use Only DO Not Attach Compendium DO Not Attach Compendium, Do Not Delete/merge, [id number] 03/15/2019 14:34:30 02/27/20 22 02/26/2022 pregn chuck test, urine HCG negati ve Not Available In-Office Order Internal Use Only DO Not Attach Compendium DO Not Attach Compendium, Do Not Delete/merge, [id number] 02/26/2022 10:58:01 06/25/20 22 06/25/2022 CBC W/DIF F WBC 3.0 K/uL 3.4-10 .8 low Not Available [facility] (Lab) [address] [place], [address], 06/25/2022 15:25:28 06/25/20 22 06/25/2022 CBC W/DIF F red blood count 4.3 M/uL 4.2-5. 4 Not Available [facility] (Lab) [address] [place], [address], 06/25/2022 15:25:28 06/25/20 22 06/25/2022 CBC W/DIF F hemoglobin 11.9 g/dL 11.5-1 5.5 Not Available [facility] (Lab) [address] [facility], [place], [address], 06/25/2022 15:25:28 06/25/20 22 06/25/2022 CBC W/DIF F hematocrit 36.4 % 36.0-4 8.0 Not Available [facility] (Lab) [address] [place], [address], 06/25/2022 15:25:28 06/25/20 22 06/25/2022 CBC W/DIF F MCV 84 fL 80-95 Not Available [facility] (Lab) [address] [place], [address], 06/25/2022 15:25:28 06/25/20 22 06/25/2022 CBC W/DIF F MCH 27 pg 27-32 Not Available [facility] (Lab) [address] [place], [address], 06/25/2022 15:25:28 06/25/20 22 06/25/2022 CBC W/DIF F MCHC 33 g/dL 32-36 Not Available [facility] (Lab) [address] [facility], [place], [address], 06/25/2022 15:25:28 06/25/20 22 06/25/2022 CBC W/DIF F platelets 229 K/uL 155-37 9 Not Available [facility] (Lab) [address] [place], [address], 06/25/2022 15:25:28 06/25/20 22 06/25/2022 CBC W/DIF F RDW 13.2 % 11.5-1 4.5 Not Available [facility] (Lab) [address] [place], [address], 06/25/2022 15:25:28 06/25/20 22 06/25/2022 CBC W/DIF F MPV 10.6 fL 8.9-12 .7 Not Available [facility] (Lab) [address] [place], [address], 06/25/2022 15:25:28 06/25/20 22 06/25/2022 CBC W/DIF F neutrophils absolute 1.0 K/uL 1.4-7. 0 low Not Available [facility] (Lab) [address] [place], [address], 06/25/2022 15:25:28 06/25/20 22 06/25/2022 CBC W/DIF F lymphs (absolute) 1.5 K/uL 0.7-3. 1 Not Available [facility] (Lab) [address] [place], [address], 06/25/2022 15:25:28 06/25/20 22 06/25/2022 CBC W/DIF F monocytes (absolute) 0.3 K/uL 0.1-0. 9 Not Available [facility] (Lab) [address] [place], [address], 06/25/2022 15:25:28 06/25/20 22 06/25/2022 CBC W/DIF F eos (absolute) 0.1 K/uL 0.0-0. 4 Not Available [facility] (Lab) [address] [facility], [place], [address], 06/25/2022 15:25:28 06/25/20 22 06/25/2022 CBC W/DIF F baso (absolute) 0.0 K/uL 0.0-0. 3 Not Available [facility] (Lab) [address] [place], [address], 06/25/2022 15:25:28 06/25/20 22 06/25/2022 CBC W/DIF F neut % 33.9 % 40.0-7 4.0 low Not Available [facility] (Lab) [address] [place], [address], 06/25/2022 15:25:28 06/25/20 22 06/25/2022 CBC W/DIF F lymphs % 51.5 % 14.0-4 6.0 high Not Available [facility] (Lab) [address] [facility], [place], [address], 06/25/2022 15:25:28 06/25/20 22 06/25/2022 CBC W/DIF F mono % 10.2 % 4.0-12 .0 Not Available [facility] (Lab) [address] [place], [address], 06/25/2022 15:25:28 06/25/20 22 06/25/2022 CBC W/DIF F eos % 3 % 0-5 Not Available [facility] (Lab) [address] [facility], [place], [address], 06/25/2022 15:25:28 06/25/20 22 06/25/2022 CBC W/DIF F baso % 0.7 % 0.0-1. 0 Not Available [facility] (Lab) [address], [place], [address], 06/25/2022 15:25:28 06/25/20 22 06/25/2022 COMPR EHENS CONI METAB OLIC PANEL glucose, serum 89 mg/dL 65-99 Not Available [facility] (Lab) [address], [place], [address], 06/25/2022 16:01:36 06/25/20 22 06/25/2022 COMPR EHENS CONI METAB OLIC PANEL BUN 12 mg/dL 8-26 Not Available [facility] (Lab) [address], [place], [address], 06/25/2022 16:01:36 06/25/20 22 06/25/2022 COMPR EHENS CONI METAB OLIC PANEL creatinine, serum 0.74 mg/dL 0.50-1 .40 Not Available [facility] (Lab) [address], [place], [address], 06/25/2022 16:01:36 06/25/20 22 06/25/2022 COMPR EHENS CONI METAB OLIC PANEL BUN/creatnin e ratio 15.5 Not Available [facility] (Lab) [address], [place], [address], 06/25/2022 16:01:36 06/25/20 22 06/25/2022 COMPR EHENS CONI METAB OLIC PANEL sodium, serum 142.2 mmol/ L 136.0- 144.0 Not Available [facility] (Lab) [address] [place], [address], 06/25/2022 16:01:36 06/25/20 22 06/25/2022 COMPR EHENS CONI METAB OLIC PANEL potassium, serum 3.8 mmol/ L 3.5-5. 3 Not Available [facility] (Lab) [address] [place], [address], 06/25/2022 16:01:36 06/25/20 22 06/25/2022 COMPR EHENS CONI METAB OLIC PANEL chloride, serum 108 mmol/ l 101-11 1 Not Available [facility] (Lab) [address] [place], [address], 06/25/2022 16:01:36 06/25/20 22 06/25/2022 COMPR EHENS CONI METAB OLIC PANEL carbon dioxide total 23.8 mmol/ L 21.0-3 2.0 Not Available [facility] (Lab) [address] [place], [address], 06/25/2022 16:01:36 06/25/20 22 06/25/2022 COMPR EHENS CONI METAB OLIC PANEL aniongp 15.0 mmol/ L Not Available [facility] (Lab) [address] [place], [address], 06/25/2022 16:01:36 06/25/20 22 06/25/2022 COMPR EHENS CONI METAB OLIC PANEL calcium, serum 9.3 mg/dL 8.2-10 .0 Not Available [facility] (Lab) [address] [place], [address], 06/25/2022 16:01:36 06/25/20 22 06/25/2022 COMPR EHENS CONI METAB OLIC PANEL total protein 7.0 g/dL 6.7-8. 2 Not Available [facility] (Lab) [address] [place], [address], 06/25/2022 16:01:36 06/25/20 22 06/25/2022 COMPR EHENS CONI METAB OLIC PANEL albumin, serum 4.4 g/dL 3.5-5. 5 Not Available [facility] (Lab) [address] [place], [address], 06/25/2022 16:01:36 06/25/20 22 06/25/2022 COMPR EHENS CONI METAB OLIC PANEL agratio 1.7 Not Available [facility] (Lab) [address], [place], [address], 06/25/2022 16:01:36 06/25/20 22 06/25/2022 COMPR EHENS CONI METAB OLIC PANEL bilt 0.4 mg/dL 0.0-1. 2 Not Available [facility] (Lab) [address], [place], [address], 06/25/2022 16:01:36 06/25/20 22 06/25/2022 COMPR EHENS CONI METAB OLIC PANEL AST 9.3 U/L 10.0-4 2.0 low Not Available [facility] (Lab) [address] [place], [address], 06/25/2022 16:01:36 06/25/20 22 06/25/2022 COMPR EHENS CONI METAB OLIC PANEL ALT 10.3 U/L 10.0-6 0.0 Not Available [facility] (Lab) [address], [place], [address], 06/25/2022 16:01:36 06/25/20 22 06/25/2022 COMPR EHENS CONI METAB OLIC PANEL alk phos 44.1 IU/L 42.0-1 21.0 Not Available [facility] (Lab) [address] [place], [address], 06/25/2022 16:01:36 06/25/20 22 06/25/2022 COMPR EHENS CONI METAB OLIC PANEL osmol 283.0 mOsm/ L 275.0- 301.0 Not Available [facility] (Lab) [address] [place], [address], 06/25/2022 16:01:36 06/25/20 22 06/25/2022 COMPR EHENS CONI METAB OLIC PANEL eGFR 112 mL/mi n/1.7 3 >=60 Not Available [facility] (Lab) [address] [place], [address], 06/25/2022 16:01:36 06/25/20 22 06/26/2022 HIV AG/AB WITH REFLE X, 4TH GEN HIV 4TH generation Non Reacti ve non reacti ve HIV Negat coni HIV-1 /HIV- 2 antib odies and HIV-1 p24 antig en were NOT detec zoltan. There is no labor atory evide nce of HIV infec tion. Not Available [facility] (Lab) [address] [place], [address], 06/26/2022 07:14:53 06/25/20 22 06/26/2022 RPR, RFX QN RPR/C ONFIR M TP RPR Non Reacti ve non reacti ve Not Available [facility] (Lab) [address] [facility], [place], [address], 06/26/2022 11:14:53 06/25/20 22 06/26/2022 HEPAT ITIS B SURFA CE AG HBsAg screen Negati ve negati ve Not Available [facility] (Lab) [address] [facility], [place], [address], 06/26/2022 11:14:56 06/25/20 22 06/27/2022 IG, CT/NG /TV AND HPV RFX 16 & 18, 45 diagnosis: SPRCS NEGAT CONI FOR INTRA EPITH ELIAL LESIO N OR MALORALIA JENNIFER . Perfo rmed at: WB Not Available [facility] (Lab) [address] [facility], [place], [address], 06/27/2022 12:10:38 06/25/20 22 06/27/2022 IG, CT/NG /TV AND HPV RFX 16 & 18, 45 specimen adequacy: SPRCS Satis facto ry for evalu ation . Endoc ervic al and/o r squam ous metap lasti c cells (endo cervi jamar compo nent) are prese nt. Perfo rmed at: WB Not Available [facility] (Lab) [address] [facility], [place], [address], 06/27/2022 12:10:38 06/25/20 22 06/27/2022 IG, CT/NG /TV AND HPV RFX 16 & 18, 45 clinician provided ICD10 [facility] Z01.4 19 Perfo rmed at: WB Not Available [facility] (Lab) [address] [facility], [place], [address], 06/27/2022 12:10:38 06/25/20 22 06/27/2022 IG, CT/NG /TV AND HPV RFX 16 & 18, 45 performed by: [facility] John Mccord , Cytodamaris echsergio alvarez t (ASCP ) Perfo rmed at: WB Not Available [facility] (Lab) [address] [facility], [place], [address], 06/27/2022 12:10:38 06/25/20 22 06/27/2022 IG, CT/NG /TV AND HPV RFX 16 & 18, 45 Pap smear, 1 slide . Perfo rmed at: WB Not Available [facility] (Lab) [address] [facility], [place], [address], 06/27/2022 12:10:38 06/25/20 22 06/27/2022 IG, CT/NG /TV AND HPV RFX 16 & 18, 45 note: PAPSMR The Pap smear is a scree esthela test desig ivis to aid in the detec tion of jesus ligna nt and malig nant condi tions of the uteri ne cervi x. It is not a diagn ostic proce dure and shoul d not be used as the sole means of detec ting cervi jamar cance r. Both false -posi tive and false -nega tive repor ts do occur . . Perfo rmed at: WB Not Available [facility] (Lab) [address] [facility], [place], [address], 06/27/2022 12:10:38 06/25/20 22 06/27/2022 IG, CT/NG /TV AND HPV RFX 16 & 18, 45 test methodology: IGLPAP This liqui d based ThinP rep(R ) pap test was scree ivis with the use of an image guide d syste m. Perfo rmed at: WB Not Available [facility] (Lab) [address] [place], [address], 06/27/2022 12:10:38 06/25/20 22 06/27/2022 IG, CT/NG /TV AND HPV RFX 16 & 18, 45 HPV aptima Negati ve negati ve This nucle ic acid ampli ficat ion test detec ts fourt een high- risk HPV types (16,1 8,31, 33,35 ,39,4 5,51, 52,56 ,58,5 9,66, 68) witho ut diffe renti ation . Perfo rmed at: =G Not Available [facility] (Lab) [address] [facility], [place], [address], 06/27/2022 12:10:38 06/25/20 22 06/27/2022 IG, CT/NG /TV AND HPV RFX 16 & 18, 45 chlamydia, nuc. acid Negati ve negati ve Perfo rmed at: =G Not Available [facility] (Lab) [address] [facility], [place], [address], 06/27/2022 12:10:38 06/25/20 22 06/27/2022 IG, CT/NG /TV AND HPV RFX 16 & 18, 45 gonococcus, nuc. acid amp Negati ve negati ve Perfo rmed at: =G Not Available [facility] (Lab) [address] [place], [address], 06/27/2022 12:10:38 06/25/20 22 06/27/2022 IG, CT/NG /TV AND HPV RFX 16 & 18, 45 trich vag by SONYA Negati ve negati ve Perfo rmed at: =G Not Available [facility] (Lab) [address] [facility], [place], [address], 06/27/2022 12:10:38 07/21/20 22 07/21/2022 pregn chuck test, urine HCG negati ve Not Available In-Office Order Internal Use Only DO Not Attach Compendium DO Not Attach Compendium, Do Not Delete/merge, [id number] 07/21/2022 09:46:33 Result Notes None recorded. Problems Name Problem SNOMED Code Status Onset Date Resolution Date Notes Provider Name and Address Organization Details Recorded Time Bacterial vaginosis 060032847 Active Imani Mckenzie MD Attn: Yazmin langley,[address] [facility], [place], [address], [place] [facility] 6 13:14:05 Contracepti on care management Active paragard 04/02/17 Imani Mckenzie MD Attn: Yazmin langley,[address] [facility], [place], [address], [facility] 7 10:53:18 Vaginal discharge 286205512 Active Imani Mckenzie MD Attn: Yazmin langley,[address] [facility], [place], [address], [facility] 6 13:14:05 Chlamydial infection 487384596 Active Imani Mckenzie MD Attn: Yazmin langley,[address] [facility], [place], [address], [place] [facility] 6 13:14:05 Problem Notes None recorded. Procedures Surgical History Date Name Laterality Status Provider Name and Address Organization Details Recorded Time 2 Control Implant Removal completed Sohan Dorado MD Attn: Accounting,[address] [facility], [place], [address], [place] [facility] 07/21/2022 14:55:43 8 Control Implant Insertion completed Lawson Vieira MD Attn: Accounting,[address] [facility], [place], [address], [place] [facility] 10/12/2018 20:43:40 6 Control Implant Removal completed Imani Mckenzie MD Attn: Accounting,[address] [place], [address], [place] [facility] 04/16/2016 15:14:41 6 Depo Injection completed Imani Mckenzie MD Attn: Accounting,[address] [facility], [place], [address], [facility] 04/16/2016 15:14:41 6 Control Implant Insertion completed Imani Mckenzie MD Attn: Accounting,[address] [facility], [place], [address], [facility] 12/07/2015 12:12:01 5 Depo Injection completed Pankaj Posadas MD Attn: Accounting,[address] [facility], [place], [address], [facility] 02/22/2015 15:42:17 5 Depo Injection completed Christina Polanco [place] - [facility] 12/07/2014 14:45:56 5 Date of Last Pap Smear completed Merlyn Luna [place] - [facility] 02/27/2015 16:25:38 Imaging Results None recorded. Procedure Notes None recorded. Medical Equipment None Reported. Allergies No known drug allergies Medications Name Sig Start Date Stop Date Status Note LastModified by Organization Details LastModified Time doxycycline hyclate 100 mg capsule Take 1 capsule twice a day by oral route for 7 days. 06/25 completed Not Available Not Available Not Available metronidazo le 0.75 % (37.5 mg/5 gram) vaginal gel Insert 1 applicato rful every day by vaginal route at bedtime for 5 days. 06/25 completed Not Available Not Available Not Available Diflucan 150 mg tablet Take 1 tablet every day by oral route for 1 day. 06/25 completed Not Available Not Available Not Available metronidazo le 500 mg tablet TAKE 1 TABLET BY MOUTH TWICE DAILY FOR 7 DAYS active Not Available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
== END 2025-03-09 08:17 | disposition home or self-care (01) ==
PROVIDERS: PCP Nurse Practitioner Family; Visit Provider Nurse Practitioner Family
DX: R22.1 Localized swelling, mass and lump, neck (principal)
CPT/HCPCS: 76536